=== PATIENT | female | born 1965 ===

== ENCOUNTER 2020-02-20 16:05 | Outpatient (REF) | payer BC, SELFPAY ==
[2020-02-20 18:02] LABS: Anion Gap 13 (12-20); Blood Urea Nitrogen 19 mg/dL (9-16); Calcium 8.6 mg/dL (8.4-10.2); Carbon Dioxide 30 mmol/L (22-29); Chloride 105 mmol/L (96-108); Estimated Glomerular Filt Rate 57; Glucose Random 85 mg/dL (60-115); Potassium 5.4 mmol/l (3.3-5.1); Sodium 143 mmol/L (135-145)
[2020-02-20 18:06] LABS: B Type Natriuretic Peptide 141 pg/mL (<100)
== END 2020-02-20 16:06 | disposition home or self-care (01) ==
LOC: HO.LAB 16:05
PROVIDERS: Visit Provider Internal Medicine Cardiovascular Disease
DX: I11.0 Hypertensive heart disease with heart failure (principal); I50.9 Heart failure, unspecified
CPT/HCPCS: 80048; 83880

== ENCOUNTER → 2020-03-19 15:17 | Outpatient (BNVA) | payer BC, SELFPAY | PROVIDERS: Visit Provider Internal Medicine Cardiovascular Disease | DX: I50.30 Unspecified diastolic (congestive) heart failure (principal); I51.7 Cardiomegaly; G47.00 Insomnia, unspecified; E66.01 Morbid (severe) obesity due to excess calories | CPT/HCPCS: 93005 ==

== ENCOUNTER 2020-04-03 15:28 | Outpatient (REF) | payer BC, SELFPAY ==
[2020-04-03 17:53] LABS: B Type Natriuretic Peptide 126 pg/mL (<100)
== END 2020-04-03 15:29 | disposition home or self-care (01) ==
LOC: HO.LAB 15:28
PROVIDERS: Visit Provider Internal Medicine Cardiovascular Disease
DX: I50.30 Unspecified diastolic (congestive) heart failure (principal); I51.7 Cardiomegaly; I10 Essential (primary) hypertension
CPT/HCPCS: 83880

== ENCOUNTER → 2020-07-19 15:29 | Outpatient (BNVA) | payer BC, SELFPAY | PROVIDERS: PCP Internal Medicine; Visit Provider Internal Medicine Cardiovascular Disease ==

== ENCOUNTER 2020-08-02 10:19 | Outpatient (REF) | payer BC, SELFPAY ==
[2020-08-02 11:44] LABS: MANUAL DIFF FLAG NO
[2020-08-02 11:51] LABS: Basophils Absolute Auto 0.1 X10*3/uL (0.0-0.2); Basophils Percent Auto 0.8 % (0-2); Eosinophils Absolute Auto 0.2 X10*3/uL (0.0-0.4); Eosinophils Percent Auto 3.1 % (0-4); Hematocrit 42.3 % (37-47); Hemoglobin 13.6 g/dl (12.0-16.0); Imm Gran Abs Auto 0.03 X10*3/uL (0.00-0.03); Imm Gran Pct Auto 0.5 % (0.0-0.4); Lymphocytes Absolute Auto 1.6 X10*3/uL (1.2-4.9); Lymphocytes Percent Auto 26.7 % (20-40); Mean Corpuscular HGB Conc 32.2 g/dl (31.0-35.0); Mean Corpuscular Hemoglobin 28.8 pg (27.0-33.0); Mean Corpuscular Volume 89.4 fL (80-98); Mean Platelet Volume 11.3 fL (9.4-12.3); Monocytes Absolute Auto 0.7 X10*3/uL (0.1-1.2); Monocytes Percent Auto 10.9 % (2-11); Neutrophils Absolute Auto 3.6 X10*3/uL (2.0-8.3); Platelet Count 263 X10*3/uL (160-400); Red Blood Count 4.73 X10*6/uL (4.20-5.50); Red Cell Distribution Width 13.2 % (11.0-16.0); White Blood Count 6.1 X10*3/uL (4.8-10.8)
[2020-08-02 12:18] LABS: B Type Natriuretic Peptide 150 pg/mL (<100)
[2020-08-02 12:24] LABS: Appearance Urine CLEAR; Color Urine YELLOW; Glucose Urine UA NEG (NEG); Leukocyte Esterase Urine NEG (NEG); Nitrite Urine NEG (NEG); PH 5.5 (5.0-8.0); Specific Gravity - Urine 1.025 (1.005-1.025); Urine Blood NEG (NEG); Urine Ketones NEG (NEG); Urine Protein NEG (NEG-TRACE)
[2020-08-02 12:25] LABS: Alanine Aminotransferase 47 U/L (0-31); Albumin Level 4.3 g/dL (3.5-5.0); Alkaline Phosphatase 102 U/L (39-117); Anion Gap 12 (12-20); Aspartate Amino Transferase 36 U/L (5-31); Bilirubin Total 0.4 mg/dL (0.0-1.0); Blood Urea Nitrogen 27 mg/dL (9-16); Calcium 9.3 mg/dL (8.4-10.2); Carbon Dioxide 31 mmol/L (22-29); Chloride 105 mmol/L (96-108); Cholesterol 258 mg/dL; Estimated Glomerular Filt Rate > 60; Glucose Fasting 108 mg/dL (60-99); HDL Cholesterol 69 mg/dL; LDL Cholesterol Calculated 171 mg/dl; Potassium 4.3 mmol/L (3.3-5.1); Sodium 144 mmol/L (135-145); Total Protein 7.5 g/dL (6.5-8.0); Triglycerides 91 mg/dL
[2020-08-02 12:30] LABS: TSH reflex Free T4 0.93 uIU/mL (0.32-4.0)
== END 2020-08-02 10:20 | disposition home or self-care (01) ==
LOC: HO.LAB 10:19
PROVIDERS: Absent Provider Internal Medicine Cardiovascular Disease; PCP Internal Medicine; Visit Provider Nurse Practitioner Family
DX: I50.30 Unspecified diastolic (congestive) heart failure (principal); I51.7 Cardiomegaly; G47.33 Obstructive sleep apnea (adult) (pediatric); I10 Essential (primary) hypertension; E78.5 Hyperlipidemia, unspecified; E78.00 Pure hypercholesterolemia, unspecified; E66.01 Morbid (severe) obesity due to excess calories; Z68.41 Body mass index [BMI] 40.0-44.9, adult; Z88.0 Allergy status to penicillin; Z98.890 Other specified postprocedural states; Z99.89 Dependence on other enabling machines and devices; Z79.82 Long term (current) use of aspirin; Z79.899 Other long term (current) drug therapy
CPT/HCPCS: 36415; 80053; 80061; 81003; 83880; 84443; 85025

== ENCOUNTER → 2020-08-15 07:53 | Outpatient (BNVA) | payer BC, SELFPAY | PROVIDERS: PCP Internal Medicine; Visit Provider Surgery ==

== ENCOUNTER → 2020-09-06 15:13 | Outpatient (BNVA) | payer BC, SELFPAY | PROVIDERS: PCP Internal Medicine; Referring Provider Internal Medicine; Visit Provider Internal Medicine Cardiovascular Disease ==

== ENCOUNTER 2020-09-10 08:04 | Outpatient (REF) | payer BC, SELFPAY ==
--- NOTE | ~2020-09-10 | FL_ITS ---
EXAMINATION: FL UPPER GI SERIES XR CHEST CLINICAL INFORMATION: Moderate/severe obesity to the excess categories. COMPARISON: None. TECHNIQUE: Routine upper GI air contrast study was performed. Chest 2 views. FINDINGS: Upper GI: Following oral administration of thick barium and effervescent granules, there is normal propagation bolus from the oral cavity through the pharynx and esophagus and into the stomach without any evidence of obstruction, narrowing or stricture. On placing patient supine and prone lying, the course, caliber and peristalsis of the stomach and the duodenal bulb are normal. Prominent gastric glands are seen within the body of the stomach but no suspicion for erosions or ulcerations. The rest of the stomach, the duodenal bulb and the sweep appear unremarkable. Moderate gastroesophageal reflux with small reducible hiatal hernia is noted. FL/FL upper GI series IMPRESSION: Moderate gastroesophageal reflux with small reducible hiatal hernia. The rest of the upper GI exam is unremarkable.
--- NOTE | ~2020-09-10 | US_ITS ---
EXAMINATION: US COMPLETE ABDOMEN WITH LIVER ELASTOGRAPHY CLINICAL INFORMATION: Obesity. COMPARISON: Previous abdominal ultrasound October [address] of the abdomen and pelvis December 2014. TECHNIQUE: Real-time imaging of the abdominal viscera. Noninvasive ultrasound liver fibrosis assessment is performed using Krysta ElastPQ point quantification shear wave elastography (pSWE) with a C5-2 MHz transducer. Multiple elastography samples are obtained. FINDINGS: PANCREAS: The visualized pancreatic head and body are normal in appearance. The remainder of the pancreas is obscured from visualization by the overlying bowel gas. ABDOMINAL AORTA: The proximal, middle, and distal aortic segments are normal in caliber. INFERIOR VENA CAVA: Visualized portions are normal. LIVER: Liver echotexture is increased. The liver is enlarged. The liver contour is normal. No focal lesion or intrahepatic biliary duct dilatation. The right lobe measures 21 cm in length. The left lobe measures 12 cm in length. Portal flow is normal/hepatopedal. Shear wave liver elastography median stiffness is 2.3 m/s (reference: Normal median stiffness is 1.3 m/s or less). IQR/median stiffness to assess sampling precision is 0.34 (reference: good quality data set is IQR/median stiffness of 0.15 or less). GALLBLADDER: Normal. The gallbladder is physiologically distended without evidence of stones, sludge, polyps, wall thickening or pericholecystic fluid. COMMON BILE DUCT: Normal in caliber measuring 0.3 cm in diameter. RIGHT KIDNEY: There is a 6.3 x 5.3 x 6.1 cm cyst in the midpole. No hydronephrosis. No renal calculi or mass. The kidney measures 10.8 cm in maximum dimension. LEFT KIDNEY: Normal. No hydronephrosis. No renal calculi or focal parenchymal lesions. The kidney measures 10.4 cm in maximum dimension. SPLEEN: Normal. The spleen measures 9.4 cm in maximum dimension. FREE FLUID: None. US/US abdomen comp w elastography IMPRESSION: 1. Impression: Enlarged echogenic liver probably representing fatty infiltration. 6 cm right renal cyst. Limited visualization of the tail the pancreas. 2. Liver elastography: Limited due to sampling error. Liver stiffness suggests evidence of compensated advanced chronic liver disease. REFERENCE: Society of Radiologists in Ultrasound Liver Stiffness Thresholds (2020): LIVER STIFFNESS THRESHOLDS: *Liver Stiffness equal or less than 1.3 m/s: High probability of being normal. *Liver Stiffness less than 1.7 m/s: In the absence of other known clinical signs, rules out compensated advanced chronic liver disease. *Liver Stiffness 1.7-2.1 m/s: Suggestive of compensated advanced chronic liver disease but need further test for confirmation. *Liver Stiffness over 2.1 m/s: Rules in compensated advanced chronic liver disease. *Liver Stiffness over 2.4 m/s: Suggestive of clinically significant portal hypertension. QUALITY OF DATA SET: *IQR/Median value equal or less than 0.15 implies a quality data set. *IQR/Median value over 0.15 implies a poor quality data set. SIGNIFICANT CHANGE FROM PRIOR EXAM: Significant change if liver stiffness measurement is 10% or greater from prior exam. OTHER CONSIDERATIONS: The stage of liver fibrosis may be overestimated in the setting of acute hepatitis, liver inflammation, elevated liver function tests, hepatic vascular congestion, obstructive cholestasis, non-fasting state, and infiltrative diseases such as amyloidosis and lymphoma. In some patients with NAFLD, the liver stiffness thresholds for compensated advanced chronic liver disease may be lower. In causes other than viral hepatitis and NAFLD, liver stiffness thresholds are not well established.
== END 2020-09-10 08:05 | disposition home or self-care (01) ==
LOC: HO.US 08:04
PROVIDERS: Visit Provider Surgery
DX: Z01.818 Encounter for other preprocedural examination (principal); E66.01 Morbid (severe) obesity due to excess calories; G47.30 Sleep apnea, unspecified; E78.00 Pure hypercholesterolemia, unspecified; K21.9 Gastro-esophageal reflux disease without esophagitis; I11.0 Hypertensive heart disease with heart failure; I50.30 Unspecified diastolic (congestive) heart failure; Z68.41 Body mass index [BMI] 40.0-44.9, adult
CPT/HCPCS: 71046; 74240; 76705; 76981

== ENCOUNTER → 2020-09-18 08:14 | Outpatient (BNVA) | payer BC, SELFPAY | PROVIDERS: PCP Internal Medicine; Visit Provider Dietitian, Registered | DX: E66.01 Morbid (severe) obesity due to excess calories (principal); Z68.41 Body mass index [BMI] 40.0-44.9, adult | CPT/HCPCS: 97802 ==

== ENCOUNTER → 2020-09-25 08:08 | Outpatient (BNVA) | payer BC, SELFPAY | PROVIDERS: PCP Internal Medicine; Visit Provider Surgery ==

== ENCOUNTER → 2020-10-16 15:05 | Outpatient (BNVA) | payer BC, SELFPAY | PROVIDERS: PCP Internal Medicine; Referring Provider Internal Medicine; Visit Provider Internal Medicine Cardiovascular Disease ==

== ENCOUNTER → 2020-12-11 08:05 | Outpatient (BNVA) | payer BC, SELFPAY | PROVIDERS: PCP Internal Medicine; Visit Provider Dietitian, Registered | DX: E66.01 Morbid (severe) obesity due to excess calories (principal); Z68.41 Body mass index [BMI] 40.0-44.9, adult | CPT/HCPCS: 97803 ==

== ENCOUNTER 2020-12-17 10:03 | Outpatient (REF) | payer BC, SELFPAY ==
[2020-12-18 12:01] LABS: H Pylori Breath Test NOT DETECTED (NOT DETECTED)
== END 2020-12-17 10:04 | disposition home or self-care (01) ==
LOC: HO.LNP 10:03
PROVIDERS: PCP Internal Medicine; Referring Provider Internal Medicine; Visit Provider Physician Assistant
DX: Z01.818 Encounter for other preprocedural examination (principal); E66.01 Morbid (severe) obesity due to excess calories; Z68.41 Body mass index [BMI] 40.0-44.9, adult
CPT/HCPCS: 83013

== ENCOUNTER → 2020-12-21 10:01 | Outpatient (REF) | payer BC, SELFPAY ==
--- NOTE | 2020-12-21 11:12 | ECG_ITS ---
Test Reason : MORBID OBESITY Blood Pressure : / mmHG Vent. Rate : 083 BPM Atrial Rate : 083 BPM P-R Int : 144 ms QRS Dur : 072 ms QT Int : 396 ms P-R-T Axes : 069 066 097 degrees QTc Int : 465 ms Normal sinus rhythm Possible Left atrial enlargement T-wave inversion in Lateral leads Abnormal ECG When compared with ECG of 29-SEP-2015 10:18, T wave inversion more evident in Lateral leads Referred By: Misael Balderas Electronically Signed By:CORBY HUNTER
[2020-12-21 11:33] LABS: MANUAL DIFF FLAG NO
[2020-12-21 11:38] LABS: Basophils Absolute Auto 0.1 X10*3/uL (0.0-0.2); Basophils Percent Auto 0.9 % (0-2); Eosinophils Absolute Auto 0.1 X10*3/uL (0.0-0.4); Eosinophils Percent Auto 2.3 % (0-4); Hematocrit 39.3 % (37-47); Hemoglobin 12.8 g/dl (12.0-16.0); Imm Gran Abs Auto 0.02 X10*3/uL (0.00-0.03); Imm Gran Pct Auto 0.4 % (0.0-0.4); Lymphocytes Absolute Auto 1.5 X10*3/uL (1.2-4.9); Lymphocytes Percent Auto 26.9 % (20-40); Mean Corpuscular HGB Conc 32.6 g/dl (31.0-35.0); Mean Corpuscular Hemoglobin 28.7 pg (27.0-33.0); Mean Corpuscular Volume 88.1 fL (80-98); Mean Platelet Volume 10.7 fL (9.4-12.3); Monocytes Absolute Auto 0.4 X10*3/uL (0.1-1.2); Monocytes Percent Auto 7.8 % (2-11); Neutrophils Absolute Auto 3.5 X10*3/uL (2.0-8.3); Neutrophils Percent Auto 61.7 % (45-73); Platelet Count 303 X10*3/uL (160-400); Red Blood Count 4.46 X10*6/uL (4.20-5.50); Red Cell Distribution Width 12.7 % (11.0-16.0); White Blood Count 5.6 X10*3/uL (4.8-10.8)
[2020-12-21 12:03] LABS: Estimated Average Glucose 111 mg/dL; Hemoglobin A1c % 5.5 %
[2020-12-21 12:10] LABS: Alanine Aminotransferase 28 U/L (0-31); Albumin Level 4.1 g/dL (3.5-5.0); Alkaline Phosphatase 93 U/L (39-117); Anion Gap 12 (12-20); Aspartate Amino Transferase 22 U/L (5-31); Bilirubin Total 0.4 mg/dL (0.0-1.0); Blood Urea Nitrogen 17 mg/dL (9-16); C Reactive Protein 2.44 mg/dL (< or = 0.50); Calcium 9.6 mg/dL (8.4-10.2); Carbon Dioxide 29 mmol/L (22-29); Chloride 106 mmol/L (96-108); Cholesterol 235 mg/dL; Estimated Glomerular Filt Rate > 60; Glucose Random 102 mg/dL (60-115); HDL Cholesterol 57 mg/dL; LDL Cholesterol Calculated 157 mg/dl; Potassium 4.4 mmol/L (3.3-5.1); Sodium 143 mmol/L (135-145); Total Protein 6.8 g/dL (6.5-8.0); Triglycerides 107 mg/dL
[2020-12-21 12:31] LABS: Ferritin 75 ng/mL (10-250); Vitamin D 25-OH Total 17.8 ng/mL (>30)
[2020-12-21 12:34] LABS: Folate 16.4 ng/mL (> or = 4.0); Vitamin B12 334 pg/mL (200-900)
[2020-12-25 16:06] LABS: Vitamin B1 11 nmol/L (8-30)
[2020-12-26 06:36] LABS: Zinc 76 mcg/dL (60-130)
[2020-12-26 19:07] LABS: Vitamin A 45 mcg/dL (38-98)
[2020-12-26 23:41] LABS: Insulin Level Total 18.5 uIU/mL
[2020-12-29 13:26] LABS: Calcium (PTHI) 9.3 mg/dL (8.6-10.4); PTHI 39 pg/mL (14-64)
== END ==
LOC: HO.CARD 10:01
PROVIDERS: Absent Provider Surgery; PCP Internal Medicine; Referring Provider Internal Medicine; Visit Provider Physician Assistant
DX: I11.0 Hypertensive heart disease with heart failure (principal); I50.30 Unspecified diastolic (congestive) heart failure; E66.01 Morbid (severe) obesity due to excess calories; Z68.41 Body mass index [BMI] 40.0-44.9, adult; E78.00 Pure hypercholesterolemia, unspecified; G47.30 Sleep apnea, unspecified
CPT/HCPCS: 36415; 80053; 80061; 82306; 82607; 82728; 82746; 83036; 83525; 83970; 84425; 84443; 84590; 84630; 85025; 86140; 93005

== ENCOUNTER → 2021-01-10 08:12 | Outpatient (BNVA) | payer BC, SELFPAY | PROVIDERS: PCP Internal Medicine; Referring Provider Internal Medicine; Visit Provider Dietitian, Registered | DX: E66.01 Morbid (severe) obesity due to excess calories (principal); Z68.41 Body mass index [BMI] 40.0-44.9, adult | CPT/HCPCS: 97803 ==

== ENCOUNTER → 2021-01-15 15:27 | Outpatient (BNVA) | payer BC, SELFPAY | PROVIDERS: PCP Internal Medicine; Referring Provider Internal Medicine; Visit Provider Internal Medicine Cardiovascular Disease ==

== ENCOUNTER → 2021-03-11 13:13 | Outpatient (BNVA) | payer BC, SELFPAY | PROVIDERS: PCP Internal Medicine; Referring Provider Internal Medicine; Visit Provider Physician Assistant ==

== ENCOUNTER 2021-04-02 15:28 | Outpatient (REF) | payer BC, SELFPAY ==
[2021-04-02 17:12] LABS: Anion Gap 14 (12-20); Blood Urea Nitrogen 21 mg/dL (9-16); Calcium 9.7 mg/dL (8.4-10.2); Carbon Dioxide 26 mmol/L (22-29); Chloride 103 mmol/L (96-108); Estimated Glomerular Filt Rate > 60; Glucose Random 88 mg/dL (60-115); Potassium 4.4 mmol/L (3.3-5.1); Sodium 139 mmol/L (135-145)
[2021-04-02 17:19] LABS: B Type Natriuretic Peptide 65 pg/mL (<100)
== END 2021-04-02 15:29 | disposition home or self-care (01) ==
LOC: HO.LAB 15:28
PROVIDERS: PCP Internal Medicine; Referring Provider Internal Medicine; Visit Provider Internal Medicine Cardiovascular Disease
DX: I50.30 Unspecified diastolic (congestive) heart failure (principal)
CPT/HCPCS: 36415; 80048; 83880

== ENCOUNTER → 2021-05-24 14:47 | Outpatient (BNVA) | payer BC, SELFPAY | PROVIDERS: PCP Internal Medicine; Referring Provider Internal Medicine; Visit Provider Physician Assistant ==

== ENCOUNTER → 2021-06-04 13:36 | Outpatient (REF) | payer BC, SELFPAY ==
--- NOTE | 2021-06-04 13:38 | CA_ITS ---
Transthoracic Echocardiogram Patient (Last, First, Middle): Pat Manuel, Gender: Female Date of : 1965 Age: 55 Procedure Date: 06/04/2021 Procedure Type: Transthoracic Echocardiogram Location: OP Height: 149.86 cm Weight: 101.61 kg BSA: 1.93 m2 Heart Rate: bpm BP: 124 / 78 mmHg Patient Transition Specialist: TRES Referring MD: Johny Poole MD Clerk Carrier: Johny Poole MD Symptoms: I50.30 - Unspecified diastolic (congestive) heart failure Study Quality: Fair ECG Rhythm: Sinus Conclusions: - 1. Normal LV systolic function with moderate LVH with grade 2 diastolic dysfunction 2. Moderately dilated left atrium 3. Ckup-np-nxiocmfu mitral regurgitation 4. Mildly elevated right ventricular systolic pressure 5. No pericardial effusion Findings Left Ventricle Normal left ventricular size and systolic function. There is moderately increased left ventricular wall thickness. The visually estimated ejection fraction is between 65-70%. Spectral Doppler is indicative of a pseudonormal filling pattern. E/E prime ratio is >15, consistent with elevated filling pressures. Evidence suggests grade II (moderate) diastolic dysfunction. Right Ventricle Normal right ventricular cavity size and systolic function. Atria The left atrium is moderately dilated. There is no evidence of interatrial shunt. The right atrium is normal in size. Aortic Valve Normal aortic valve structure and function. There is no aortic valve stenosis. There is no aortic valve regurgitation. Mitral Valve There is mild anterior and posterior mitral leaflet thickening. There is mild mitral annular calcification. There is mild to moderate mitral valve regurgitation. The mitral regurgitation jet is directed anteriorly. There is no mitral valve stenosis. Pulmonic Valve The pulmonic valve is likely normal. There is mild pulmonic valve regurgitation. Tricuspid Valve Normal tricuspid valve structure. There is mild tricuspid valve regurgitation. Mild pulmonary hypertension is present. Great Vessels All visible segments of the aorta are normal in size. The pulmonary artery was not well visualized. Venous The inferior vena cava is normal in size and collapses greater than 50% with inspiration. Pericardium/Pleural There is no evidence of pericardial effusion. Prior Study Comparison No significant change compared to prior study dated: 10/07/2019. Measurements 2D Linear Measurements IVSd: 1.56 0.6-0.9/0.6-1.0 cm LVIDd: 4.69 3.9-5.3/4.2-5.9 cm LVIDd Index: 2.43 2.4-3.2/2.2-3.1 cm/m2 LVIDs: 2.10 2.0-3.6 cm LVPWd: 1.45 0.7-1.1 cm Ao Root: 2.50 2.1-3.5 cm LA Diam: 4.40 2.7-3.8/3.0-4.0 cm LAIDs Index: 2.28 1.5-2.3 cm/m2 LV Mass: 367.51 67-162/88-224 g LV Mass Index: 190.42 43-95/49-115 g/m2 LVOT Diam: 2.00 3.0+(-)1.3 cm 2D Systolic Function EF 4C: 67.90 >55% EF 2C: 74.80 >55% EF BiP: 71.20 >55% Mitral Valve MV Pk E: 1.03 MV PK A: 0.75 MV Decel Time: 200.00 E/A: 1.40 E'Lateral: 5.98 E'Medial: 5.00 E/E' Med: 20.60 E/E' Lat: 17.20 PHT: 58.00 MVA PHT: 3.79 Decel Bandera: 5.15 Aortic Valve AoV Pk Roger: 1.69 AoV Mn Roger: 1.20 AoV VTI: 0.37 AoV Pk Grad: 11.00 Aov Mn Grad: 6.00 ARUN Cont.VTI: 1.99 LVOT LVOT Pk Roger: 1.06 LVOT Mn Roger: 0.76 LVOT VTI: 0.24 LVOT Pk Grad: 4.00 LVOT Mn Grad: 3.00 LVOT Diam: 2.00 LVOT Area: 3.14 Diastolic Function MV Pk E: 1.03 MV Pk A: 0.75 E/A: 1.40 E'Medial: 5.00 E/E' Med: 20.60 E' Laterial: 5.98 E/E' Lat: 17.20 Right Ventricle TAPSE (mm): 20.00 TVS' Roger: 12.00 Tricuspid Valve TR Pk Roger: 3.19 TR Pk Grad: 41.00 RA Press: 3.00 RVSP: 44.00 Great Vessels Aorta Ao Root-2D: 2.50 2.0-3.7 cm Ao Asc: 2.80 2.1-3.4 cm Ao Arch: 3.20 Updated in Other Vendor System with Status of Final Johny Poole MD electronically signed on 06/05/2021 10:04:57 AM with status of Final
== END ==
LOC: HO.CARD 13:36
PROVIDERS: Visit Provider Internal Medicine Cardiovascular Disease
DX: I50.30 Unspecified diastolic (congestive) heart failure (principal)
CPT/HCPCS: 93306

== ENCOUNTER → 2021-07-01 15:30 | Outpatient (BNVA) | payer BC, SELFPAY | PROVIDERS: PCP Internal Medicine; Referring Provider Internal Medicine; Visit Provider Internal Medicine Cardiovascular Disease | DX: Z01.810 Encounter for preprocedural cardiovascular examination (principal); I11.0 Hypertensive heart disease with heart failure; I50.30 Unspecified diastolic (congestive) heart failure; Z79.899 Other long term (current) drug therapy | CPT/HCPCS: 99212 ==

== ENCOUNTER → 2021-07-19 14:38 | Outpatient (BNVA) | payer BC, SELFPAY | PROVIDERS: PCP Internal Medicine; Referring Provider Internal Medicine; Visit Provider Physician Assistant | DX: Z13.89 Encounter for screening for other disorder (principal) ==

== ENCOUNTER → 2021-07-24 08:17 | Outpatient (BNVA) | payer BC, SELFPAY | PROVIDERS: PCP Internal Medicine; Visit Provider Surgery | DX: Z13.89 Encounter for screening for other disorder (principal) ==

== ENCOUNTER → 2021-08-16 08:40 | Outpatient (BNVA) | payer BC, SELFPAY | PROVIDERS: PCP Internal Medicine; Referring Provider Internal Medicine; Visit Provider Surgery | DX: Z13.89 Encounter for screening for other disorder (principal) ==

== ENCOUNTER → 2021-08-19 09:27 | Outpatient (BNVA) | payer BC, SELFPAY | PROVIDERS: PCP Internal Medicine; Visit Provider Surgery | DX: Z13.89 Encounter for screening for other disorder (principal) ==

== ENCOUNTER → 2021-08-23 15:46 | Outpatient (BNVA) | payer BC, SELFPAY | PROVIDERS: PCP Internal Medicine; Referring Provider Internal Medicine; Visit Provider Surgery | DX: Z13.89 Encounter for screening for other disorder (principal) ==

== ENCOUNTER → 2021-08-26 12:25 | Outpatient (BNVA) | payer BC, SELFPAY | PROVIDERS: PCP Internal Medicine; Visit Provider Physician Assistant | DX: Z13.89 Encounter for screening for other disorder (principal) ==

== ENCOUNTER 2021-08-27 07:18 | Inpatient (IN) | payer BC, SELFPAY ==
[2021-08-20 15:49] VITALS: BMI 42.4
[2021-08-22 06:48] LABS: MANUAL DIFF FLAG NO
[2021-08-22 06:54] LABS: Basophils Absolute Auto 0.1 X10*3/uL (0.0-0.2); Basophils Percent Auto 0.8 % (0-2); Eosinophils Absolute Auto 0.1 X10*3/uL (0.0-0.4); Eosinophils Percent Auto 1.1 % (0-4); Hematocrit 45.2 % (37.0-47.0); Hemoglobin 14.6 g/dl (12.0-16.0); Imm Gran Abs Auto 0.01 X10*3/uL (0.00-0.03); Imm Gran Pct Auto 0.2 % (0.0-0.4); Lymphocytes Absolute Auto 1.4 X10*3/uL (1.2-4.9); Lymphocytes Percent Auto 22.9 % (20-40); Mean Corpuscular HGB Conc 32.3 g/dl (31.0-35.0); Mean Corpuscular Hemoglobin 28.2 pg (27.0-33.0); Mean Corpuscular Volume 87.4 fL (80.0-98.0); Mean Platelet Volume 11.8 fL (9.4-12.3); Monocytes Absolute Auto 0.6 X10*3/uL (0.1-1.2); Monocytes Percent Auto 9.5 % (2-11); Neutrophils Absolute Auto 4.1 x10*3/uL (2.0-8.3); Neutrophils Percent Auto 65.5 % (45-73); Platelet Count 297 X10*3/uL (160-400); Red Blood Count 5.17 X10*6/uL (4.20-5.50); Red Cell Distribution Width 13.3 % (11.0-16.0); White Blood Count 6.2 X10*3/uL (4.8-10.8)
[2021-08-22 07:07] LABS: INTERNATIONAL NORM RATIO 1.2 (0.9-1.1); Prothrombin Time 13.3 SEC (9.9-13.0)
[2021-08-22 07:09] LABS: Partial Thromboplastin Time 37.1 SEC (24.1-38.0)
[2021-08-22 07:30] LABS: Alanine Aminotransferase 45 U/L (0-31); Albumin Level 4.3 g/dL (3.5-5.0); Alkaline Phosphatase 104 U/L (39-117); Anion Gap 13 (12-20); Aspartate Amino Transferase 35 U/L (5-31); Blood Urea Nitrogen 21 mg/dL (9-16); C Reactive Protein 3.06 mg/dL (< or = 0.50); Calcium 9.8 mg/dL (8.4-10.2); Carbon Dioxide 31 mmol/L (22-29); Chloride 101 mmol/L (96-108); Cholesterol 235 mg/dL; Creatinine Clr Calc Pharmacy 65.1; Estimated Glomerular Filt Rate 55; Glucose Random 101 mg/dL (60-115); HDL Cholesterol 60 mg/dL; LDL Cholesterol Calculated 160 mg/dl; Potassium 4.7 mmol/L (3.3-5.1); Sodium 140 mmol/L (135-145); Total Protein 7.6 g/dL (6.5-8.0); Triglycerides 77 mg/dL
[2021-08-22 07:55] LABS: TSH reflex Free T4 0.76 uIU/mL (0.32-4.0)
[2021-08-22 08:05] LABS: Estimated Average Glucose 117 mg/dL; Hemoglobin A1c % 5.7 %
[2021-08-23 11:05] LABS: Insulin 13 uU/mL (2-29)
--- NOTE | 2021-08-23 18:59 | MHC.SHP ---
Pre-Procedural Eval Section A Date of Service: 08/23/21 The patient is an INPATIENT: Yes The History & Physical has been completed within 30 days and I have reviewed it.: Yes Section B Chief Complaint: obesity, Relevant Family History (Specify if Yes): No Relevant Social History: None Present Medications: None Medical History: No relevant PMH History of Previous Operations: No relevant previous surgery Allergies: Allergies Allergy/AdvReac Type Severity Reaction Status Date / Time Penicillins [PENICILLINS] Allergy Intermediate RASH Verified 08/20/21 15:33 Review of Systems Sugical H&P ROS: Negative: Constitution, Cardiovascular, Respiratory, Neurological, Psychiatric, Hem-Onc, Allergic/Immunologic, Gastrointestinal, Genitourinary, Musculoskeletal, Integumentary, Endocrine and Eyes/Ears/Nose/Throat Exam Surgical H&P Exam: Normal: HEENT, Normal: Heart, Normal: Lungs, Normal: Extremities, Normal: Abdomen, Normal: Skin and Normal: Neurological Plan Diagnosis/Plan: Unchanged I have reviewed the history and physical and performed a pertinent physical examination on my patient. No changes have occurred unless specified.
--- NOTE | 2021-08-26 10:15 | P.CONAN_ITS ---
HPI - Anesthesia Eval Consult details Narrative: 55yo F for Gastrectomy Sleeve,EGD,poss diaphragmatic hernia,poss ventral hernia,poss open, Optimized per cardiology and neurology [facility] Active Problems Active Problems: All Active Problems (Updated 08/20/21 @ 15:51 by Aileen Lopez RN) Obstructive sleep apnea (Acute) Pre-op evaluation (Acute) Adjustment disorder, unspecified (Acute) Preoperative cardiovascular examination (Acute) Obesity (Acute) Middle cerebral artery aneurysm (Acute) Sleep apnea with use of continuous positive airway pressure (CPAP) (Acute) Morbid obesity with BMI of 40.0-44.9, adult (Acute) Pure hypercholesterolemia (Acute) Benign essential hypertension (Acute) (HFpEF) heart failure with preserved ejection fraction (Acute) Past Medical History Medical History (Updated 08/27/21 @ 14:32 by Misael Balderas MD) (HFpEF) heart failure with preserved ejection fraction Benign essential hypertension Cerebral arterial aneurysm COVID-19 vaccine series completed DJD (degenerative joint disease) GERD (gastroesophageal reflux disease) Grade II diastolic dysfunction Left atrial dilation Liver fibrosis Middle cerebral artery aneurysm Morbid obesity with BMI of 40.0-44.9, adult Pure hypercholesterolemia Sleep apnea with use of continuous positive airway pressure (CPAP) Steatosis, liver Family History Family History Father CVD (cardiovascular disease) Colon cancer Mother Gastric cancer Brother CVD (cardiovascular disease) Surgical History Surgical History (Updated 08/27/21 @ 14:22 by Nadeen Serrano PA-C) History of cardiac catheterization (~11/2019) History of surgery for cerebral aneurysm (~10/30/20) Hx of left knee surgery Social History Social History Housing: House Are you a primary client care representative to a significant other at home: No Do you presently have visiting nurse or other home services: No Alcohol intake: never Patient Tobacco Use Status: Never used Tobacco Second Hand Smoke Exposure: No service: No Current occupational status: employed 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 Meds Allergies Allergy/AdvReac Type Severity Reaction Status Date / Time Penicillins [PENICILLINS] Allergy Intermediate RASH Verified 08/20/21 15:33 Exam Exam Date and Time: August 26, 2021 1015 Height,Weight and Vital Signs: Height 5 ft Weight 98.543 kg Pertinent Lab Results Pertinent Lab Results: Laboratory Tests 08/22/21 08/22/21 08/22/21 06:42 06:46 06:46 WBC 6.2 RBC 5.17 Hgb 14.6 Hct 45.2 MCV 87.4 MCH 28.2 MCHC 32.3 RDW 13.3 Plt Count 297 MPV 11.8 Immature Gran % (Auto) 0.2 Neut % (Auto) 65.5 Lymph % (Auto) 22.9 Hardeman % (Auto) 9.5 Eos % (Auto) 1.1 Baso % (Auto) 0.8 Lymph # (Auto) 1.4 Hardeman # (Auto) 0.6 Eos # (Auto) 0.1 Baso # (Auto) 0.1 Abs Immat Gran (auto) 0.01 Absolute Neuts (auto) 4.1 Absolute Nucleated RBC 0.000 Nucleated RBC % (auto) 0.0 PT 13.3 H INR 1.2 H APTT 37.1 Sodium Potassium Chloride Carbon Dioxide Anion Gap BUN Creatinine Estim Creat Clear Calc Estimated GFR Random Glucose Estimat Average Glucose Hemoglobin A1c % Insulin Level Calcium Total Bilirubin AST ALT Alkaline Phosphatase C-Reactive Protein Total Protein Albumin Triglycerides Cholesterol LDL Cholesterol, Calc HDL Cholesterol TSH Blood Type O Positive Antibody Screen NEGATIVE 08/22/21 08/22/21 06:46 06:46 WBC RBC Hgb Hct MCV MCH MCHC RDW Plt Count MPV Immature Gran % (Auto) Neut % (Auto) Lymph % (Auto) Hardeman % (Auto) Eos % (Auto) Baso % (Auto) Lymph # (Auto) Hardeman # (Auto) Eos # (Auto) Baso # (Auto) Abs Immat Gran (auto) Absolute Neuts (auto) Absolute Nucleated RBC Nucleated RBC % (auto) PT INR APTT Sodium 140 Potassium 4.7 Chloride 101 Carbon Dioxide 31 H Anion Gap 13 BUN 21 H Creatinine 1.04 Estim Creat Clear Calc 65.1 Estimated GFR 55 Random Glucose 101 Estimat Average Glucose 117 Hemoglobin A1c % 5.7 Insulin Level 13 Calcium 9.8 Total Bilirubin 1.0 AST 35 H D ALT 45 H Alkaline Phosphatase 104 C-Reactive Protein 3.06 H Total Protein 7.6 Albumin 4.3 Triglycerides 77 Cholesterol 235 LDL Cholesterol, Calc 160 HDL Cholesterol 60 TSH 0.76 Blood Type Antibody Screen Narrative Narrative: EKG 12/2020 Vent. Rate : 083 BPM ? ? Atrial Rate : 083 BPM ?? P-R Int : 144 ms? QRS Dur : 072 ms ? ? QT Int : 396 ms ? ? ? P-R-T Axes : 069 066 097 degrees ?? QTc Int : 465 ms ? Normal sinus rhythm Possible Left atrial enlargement T-wave inversion in Lateral leads Abnormal ECG When compared with ECG of 29-SEP-2015 10:18, T wave inversion more evident in Lateral leads ECHO 05/2021 Conclusions: - 1.? Normal LV systolic function with moderate LVH with grade 2 diastolic dysfunction? 2. Moderately dilated left atrium? 3.? Bldd-hy-rplbelay mitral regurgitation? 4. Mildly elevated right ventricular systolic pressure ? 5.? No? pericardial effusion? Assessment and Plan Assessment Anesthesia Assessment: Chart Reviewed
[2021-08-26 12:36] LABS: COVID-19 Test Negative (Negative)
[2021-08-27] VITALS (14 sets, daily range): BP systolic 106–154; BP diastolic 56–89; PULSE 64–97; RESP 16–24; TEMP 36.2–37.2; O2SAT 93–100
[2021-08-27] MEDS: Lactated Ringers 1,000 ML 999 ML IV ×2 (10:39)
--- NOTE | 2021-08-27 10:59 | PHA.MEDREC ---
Pharmacy Consult ? Medication Reconciliation Pharmacy has reviewed the medication reconciliation.
--- NOTE | 2021-08-27 11:52 | HO.ANESPROP2 ---
[facility] Active Problems Active Problems: All Active Problems (Updated 08/20/21 @ 15:51 by Aileen Lopez RN) Obstructive sleep apnea (Acute) Pre-op evaluation (Acute) Adjustment disorder, unspecified (Acute) Preoperative cardiovascular examination (Acute) Obesity (Acute) Middle cerebral artery aneurysm (Acute) Sleep apnea with use of continuous positive airway pressure (CPAP) (Acute) Morbid obesity with BMI of 40.0-44.9, adult (Acute) Pure hypercholesterolemia (Acute) Benign essential hypertension (Acute) (HFpEF) heart failure with preserved ejection fraction (Acute) Past Medical History Medical History (Updated 08/20/21 @ 15:51 by Aileen Lopez RN) (HFpEF) heart failure with preserved ejection fraction Benign essential hypertension Cerebral arterial aneurysm COVID-19 vaccine series completed Middle cerebral artery aneurysm Morbid obesity with BMI of 40.0-44.9, adult Pure hypercholesterolemia Sleep apnea with use of continuous positive airway pressure (CPAP) Family History Family History Father CVD (cardiovascular disease) Colon cancer Mother Gastric cancer Brother CVD (cardiovascular disease) Family history of problems with anesthesia: No Surgical History Surgical History History of cardiac catheterization (~11/2019) History of surgery for cerebral aneurysm (~10/30/20) Hx of left knee surgery History of Problems with Anesthesia: No Social History Social History Housing: House Are you a primary field care manager to a significant other at home: No Do you presently have visiting nurse or other home services: No Alcohol intake: never Patient Tobacco Use Status: Never used Tobacco Second Hand Smoke Exposure: No Use of substances other than those prescribed or required for medical reasons: No Have you been hit, kicked, punched, or otherwise hurt by someone within the past year? 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 Meds Allergies Allergy/AdvReac Type Severity Reaction Status Date / Time Penicillins [PENICILLINS] Allergy Intermediate RASH Verified 08/20/21 15:33 Active Medications: Current Medications Lactated Ringer's (Lr) 500 mls @ 20 mls/hr IVCONT .Q24H ANTWON Exam Exam Date and Time: August 27, 2021 1152 Height,Weight and Vital Signs: Height 5 ft Weight 98.543 kg Last Vital Signs Temp 99 F 08/27/21 10:16 Pulse 66 08/27/21 10:16 Resp 16 08/27/21 10:16 BP 106/56 L 08/27/21 10:16 Pulse Ox 98 08/27/21 10:16 Pertinent Lab Results Pertinent Lab Results: Laboratory Tests 08/22/21 08/22/21 08/22/21 06:42 06:46 06:46 WBC 6.2 RBC 5.17 Hgb 14.6 Hct 45.2 MCV 87.4 MCH 28.2 MCHC 32.3 RDW 13.3 Plt Count 297 MPV 11.8 Immature Gran % (Auto) 0.2 Neut % (Auto) 65.5 Lymph % (Auto) 22.9 Wheeler % (Auto) 9.5 Eos % (Auto) 1.1 Baso % (Auto) 0.8 Lymph # (Auto) 1.4 Wheeler # (Auto) 0.6 Eos # (Auto) 0.1 Baso # (Auto) 0.1 Abs Immat Gran (auto) 0.01 Absolute Neuts (auto) 4.1 Absolute Nucleated RBC 0.000 Nucleated RBC % (auto) 0.0 PT 13.3 H INR 1.2 H APTT 37.1 Sodium Potassium Chloride Carbon Dioxide Anion Gap BUN Creatinine Estim Creat Clear Calc Estimated GFR Random Glucose Estimat Average Glucose Hemoglobin A1c % Insulin Level Calcium Total Bilirubin AST ALT Alkaline Phosphatase C-Reactive Protein Total Protein Albumin Triglycerides Cholesterol LDL Cholesterol, Calc HDL Cholesterol TSH COVID-19 (VAN) COVID-19 Clin Com Blood Type O Positive Antibody Screen NEGATIVE 08/22/21 08/22/21 08/26/21 06:46 06:46 12:05 WBC RBC Hgb Hct MCV MCH MCHC RDW Plt Count MPV Immature Gran % (Auto) Neut % (Auto) Lymph % (Auto) Wheeler % (Auto) Eos % (Auto) Baso % (Auto) Lymph # (Auto) Wheeler # (Auto) Eos # (Auto) Baso # (Auto) Abs Immat Gran (auto) Absolute Neuts (auto) Absolute Nucleated RBC Nucleated RBC % (auto) PT INR APTT Sodium 140 Potassium 4.7 Chloride 101 Carbon Dioxide 31 H Anion Gap 13 BUN 21 H Creatinine 1.04 Estim Creat Clear Calc 65.1 Estimated GFR 55 Random Glucose 101 Estimat Average Glucose 117 Hemoglobin A1c % 5.7 Insulin Level 13 Calcium 9.8 Total Bilirubin 1.0 AST 35 H D ALT 45 H Alkaline Phosphatase 104 C-Reactive Protein 3.06 H Total Protein 7.6 Albumin 4.3 Triglycerides 77 Cholesterol 235 LDL Cholesterol, Calc 160 HDL Cholesterol 60 TSH 0.76 COVID-19 (VAN) Negative COVID-19 Clin Com See Note Blood Type Antibody Screen Airway Mallampati Class: II TM Dist: >3cm Neck ROM: Full Assessment and Plan Assessment Anesthesia Assessment: Anesthesia Plan Discussed and Chart Reviewed Final Anesthetic Review Family History of Problems with Anesthesia: No History of Problems with Anesthesia: No NPO: Yes ASA Class: III Final Preanesthetic Review: No Changes in Pt Med Stat, Meds/Allgs Chart Reviewed, Consent Obtained/Reviewed and Anes Risks/Benef Reviewed Patient Risk: Intermediate Procedure Risk: Intermediate Anesthetic Plan Anesthetic Plan: GA Disposition: Standard PACU
--- NOTE | 2021-08-27 12:00 | PC.NURSE ---
spoke to md fischer about patients bolus for 1000ml due to the cardiology note. okay to bolus. kept kvo when i first scanned.
--- NOTE | 2021-08-27 14:24 | P.BOP_ITS ---
Brief Operative Note Date of Service: 08/27/21 Pre-op diagnosis: Morbid obesity with comorbidities (see below) Post-op diagnosis: same Procedure: INITIAL PATIENT BMI ON PRESENTATION AT OUR OFFICE: 44 kg/m2 LAST BMI BEFORE SURGERY: 41.9 kg/m2 COMORBIDITIES: sleep apnea on CPAP, hyperlipidemia.hypertension, CHF, DJD, GERD, liver steatosis, LVH, grade II diastolic dysfunction, left atrium dilation ?The patient presented to the Weight Management Program with significant obesity that was negatively impacting the patient's comorbidities as listed above.? The program is a phased program with a special focus on preoperative medical weight management to promote substantial weight loss and prepare the patients for the second phase of the program: bariatric surgery. The patient participated in an intensive weekly lifestyle ?intervention and exercise program during which the patient ?has lost between the initial office visit and the last preoperative visit 7lbs, or 3.16% of initial actual body weight. It was deemed appropriate for the patient to now have bariatric surgery. In light of the current Covid-19 pandemic and the well documented strong association of obesity and increased risk of worse outcomes if infected with Covid-19 (REFERENCES: https://pubmed.ncbi.nlm.nih.gov/12913881/ ,? https://pubmed.ncbi.nlm.nih.gov/59956375/ ), any delay in undergoing bariatric surgery may lead to the patient's worsening health condition and increased?risk of more severe Covid-19 disease if infected. In addition a recent?study from [facility] published in [facility] on 04/15/2021 ([email or web address]/C :[email or web address]) found that, among patients with obesity, substantial weight loss achieved with surgery was associated with improved outcomes of COVID-19 infection. The findings suggest that obesity can be a modifiable risk factor for the severity of COVID-19 infection. In addition, the patient met the BMI-criteria for bariatric surgery based on the BMI on initial presentation. The patient should not be penalized for achieving such weight loss because ?it is not sustainable long-term without surgical intervention and it was achieved in preparation for bariatric surgery ?under my direction and based on my published research ([email or web address]).pdf and? https://www.soard.org/article/[email or web address](24)69755-X/pdf ) ?that a 10% preoperative weight loss improves long-term weight loss after surgery and reduces perioperative complications.? Insurance carriers such as [facility] have endorsed my recommendations ?and have included in their policies criteria to include a 10% preoperative weight loss requirement. PROCEDURE: Esophago-gastroscopy, laparoscopic sleeve gastrectomy and laparoscopic gastropexy INDICATIONS: This is a 55 year-old female who was electively scheduled for laparoscopic, possibly open sleeve gastrectomy. The risks and complications of the procedure were discussed with the patient in advance, particularly the possibility of ; pulmonary embolism; staple line leak; bleeding; GERD; cardiac, pulmonary, or renal complications; as well as long-term problems such as insufficient weight loss, vitamin deficiency, strictures, or ulcers. The patient understood all the risks, and was in agreement to proceed with surgery. DESCRIPTION OF PROCEDURE: After informed consent was obtained from the patient, the patient was given preoperative antibiotics, and was transferred to the operating room. After successful induction of general anesthesia, pneumatic compression devices were placed on both lower extremities. An upper endoscopy was performed next. The oropharynx and esophagus appeared to be within normal limits. There was no diaphragmatic hernia present consistent with the findings of the preoperative upper GI. The stomach was entered. Then after all fluid and air were suctioned and the stomach was fully decompressed, the scope was withdrawn and secured in the mid esophagus. The patient was then prepped and draped in the usual sterile manner, and abdominal access was established at the right upper quadrant with the Doroteo technique. A 12 mm blunt port was inserted, and the abdomen was insufflated with CO2 to a pressure of 15 mmHg. Under direct visualization, additional ports were placed, specifically two 5 mm Versi-step ports to the left upper quadrant, and a 5 mm Versi-Step port to the right upper quadrant. 1% lidocaine plain was used to infiltrate all port sites as well as all fascia defects. Following that, the patient was placed in a steep reverse Trendelenburg position. An additional 5 mm port was placed to the right flank for the Mediflex retractor that was used to retract the left lobe of the liver. The gastro-esophageal fat pad was opened with the ultrasonic device (Thunderbeat, Olympus) and the anterior esophagus and hiatus were exposed. The angle of His was opened with the ultrasonic device the fundus of the stomach from any diaphragmatic and splenic attachments. I then opened the gastrocolic ligament between the transverse colon and the greater curvature of the stomach with the ultrasonic device to enter the lesser sac and facilitate the ligation of the short gastric vessels. I started at a mid-point along the greater curvature and using the Thunderbeat, all short gastric vessels were divided all the way to the angle of His until the left monse was completely dissected at its entirety. I then divided the gastro-colic ligament distally to a distance of about 3-4 cm proximal to the pylorus. The stomach was then divided transversely with one Endo ASTER-45 purple, two ASTER- 45 orange loads and three ASTER-60 articulating orange loads using the AEON stapler and loads. Every effort was made that the gastric sleeve had a tubular shape and an even caliber throughout. Once the sleeve resection was completed, the staple line of the gastric sleeve was reinforced with Hemoclips. The resected stomach was retrieved without difficulty from the Doroteo port. A gastropexy was then performed in order to prevent postoperative GERD and partial gastric volvulus. Several interrupted 2.0 Surgidac sutures were placed between the sleeve's staple line and the previously divided greater omentum and gastro-colic ligament using the Endo-Stitch device. ?An upper endoscopy was performed. There was no narrowing at the GE junction. The scope was easily advanced all the way to the pylorus which was clearly visualized. There was no narrowing anywhere and the sleeve's caliber was even throughout. The sleeve's staple line was inspected and there was no evidence of ischemia, bleeding or dehiscence. At that point the gastroscope was withdrawn from the patient?s mouth while we were decompressing the bowel and the stomach from any remaining air. I looked into the lesser sac to see how the sleeve was situating and it was situating well. There was no bleeding from the staple line, spleen, or short gastric vessels. The Mediflex retractor was removed, and the undersurface of the liver was inspected and there was no bleeding. The patient was placed in supine position. I closed the fascial defect of the 12 mm port site with a figure of eight #1 Polysorb suture. Then 100 cc 0.25 % Marcaine plain with 10 mg of Dexamethasone were used to infiltrate the fascial closure as well as all skin incisions. 5 ml of Zynrelef was also applied at the Doroteo wound. At this point, the abdomen was deflated, all ports were removed under direct vision, and no bleeding was noted from any of the port sites. The skin incisions were irrigated with saline and were closed with 4-0 absorbable monofilament sutures. Steri-Strips and OpSites were used to cover all incisions. The patient was extubated and was transferred in stable condition to the recovery room for further care. I was present and performed all carroll parts of the procedure. Ms. Serrano was the first cook. There were no residents to assist with this case. Froilan Balderas MD, PhD, FACS Surgeon: Misael Balderas MD Anesthesia: GETA, local and other (TAP block and 5ml Zynrelef) Was an Cable Lacer used for this Procedure?: Yes Cable Lacer: Nadeen Serrano Estimated blood loss (mL): 10 IV fluids (mL): 3,000 Urine output (mL): 0 (No Zavala to record) Pathology: other (Stomach) Condition: stable Disposition: PACU
--- NOTE | 2021-08-27 14:25 | PM.DS ---
DS: Providers Provider Date of Service: 08/28/21 Date of admission: 08/27/21 07:18 Primary care physician: Mert Meléndez MD DS: Summary Time Spent with Patient Time attestation: Total time spent providing and/or coordinating discharge services: Discharge coordination time: Less than 30 minutes Quality: Safe Use of Opioids Does Pt have an Active Cancer Diagnosis on the Problem List?: No Quality: Stroke Does the patient have a stroke diagnosis?: No Physical Exam Vital Signs: Vital Signs: Last Vital Signs Temp 99 F 08/27/21 10:16 Pulse 66 08/27/21 10:16 Resp 16 08/27/21 10:16 BP 106/56 L 08/27/21 10:16 Pulse Ox 98 08/27/21 10:16 BMI result Body Mass Index 42.4 DS: Data Data Completed and Pending Pending studies at discharge: Pending at discharge 08/27/21 13:36 Surgical [PTH] Routine
--- NOTE | 2021-08-27 14:28 | PM.PNGS ---
Subjective Subjective Date of Service: 08/28/21 Interval history: Patient has mild incisional pain, but was able to ambulate and use the incentive spirometer. She is tolerating phase 1 bariatric diet Physical Exam Vital Signs: Vital Signs: Last Vital Signs Temp 99 F 08/27/21 10:16 Pulse 66 08/27/21 10:16 Resp 16 08/27/21 10:16 BP 106/56 L 08/27/21 10:16 Pulse Ox 98 08/27/21 10:16 BMI result Body Mass Index 42.4 GI: Inspection: Yes normal to inspection, Yes incision (clean, dry and intact) and Yes obesity Extrem: Right lower extremity: normal to inspection (no calf tenderness) Left lower extremity: normal to inspection (no calf tenderness) Objective Data Active Medications Fentanyl (Fentanyl Citrate/Pf 100 Mcg/2 Ml Vial) 50 mcg IVPUSH Q5M PRN; Protocol PRN Reason: Pain, Severe (Pain Scale 7-10) Lactated Ringer's (Lr) 500 mls @ 20 mls/hr IVCONT .Q24H ANTWON Ondansetron HCl (Ondansetron Hcl 4 Mg/2 Ml Vial) 4 mg IVPUSH ONCE PRN PRN Reason: Nausea and Vomiting Labs CBC & Chem 7: 08/28/21 06:00 08/28/21 06:00 Procedures Date of Service Date of Service: 08/28/21 Progress Note: A&P Assessment and plan (1) S/P laparoscopic sleeve gastrectomy: Status: Acute Assessment and Plan: s/p laparoscopic sleeve gastrectomy, lysis of adhesions and gastropexy Doing well Check am labs. If OK, will discharge home? (2) Morbid obesity with BMI of 40.0-44.9, adult: Status: Acute (3) Pure hypercholesterolemia: Status: Acute (4) Benign essential hypertension: Status: Acute (5) (HFpEF) heart failure with preserved ejection fraction: Status: Acute (6) Sleep apnea with use of continuous positive airway pressure (CPAP): Status: Acute (7) DJD (degenerative joint disease): Status: Acute (8) GERD (gastroesophageal reflux disease): Status: Acute (9) Steatosis, liver: Status: Acute (10) Left atrial dilation: Status: Acute (11) Liver fibrosis: Status: Acute (12) Grade II diastolic dysfunction: Status: Acute Time Spent With Patient Time: Total time spent is greater than 50% in coordination of care (as documented) at patient's floor/unit and/or counseling patient: Quality Stroke Does the patient have a stroke diagnosis?: No VTE Prior VTE?: No VTE Risk Level:: Surgical - moderate VTE Device Contraindication: N/A - Device Ordered VTE Drug Contraindication: Treatment Not Indicated
[2021-08-27] MEDS: Famotidine/PF 20 MG/2 ML VIAL IVPUSH ×2 (14:39→20:46)
[2021-08-27] MEDS: Metoclopramide HCl 10 MG/2 ML VIAL IVPUSH ×2 (15:19→22:08)
[2021-08-27] MEDS: Lactated Ringers 1,000 ML 100 ML IVCONT ×2 (15:21→22:08)
[2021-08-27 15:23] LABS: Hematocrit 45.7 % (37.0-47.0); Hemoglobin 14.7 g/dl (12.0-16.0)
[2021-08-27 15:39] LABS: Anion Gap 16 (12-20); Blood Urea Nitrogen 13 mg/dL (9-16); Calcium 9.4 mg/dL (8.4-10.2); Carbon Dioxide 22 mmol/L (22-29); Chloride 106 mmol/L (96-108); Creatinine Clr Calc Pharmacy 69.8; Estimated Glomerular Filt Rate 60; Glucose Random 108 mg/dL (60-115); Potassium 4.7 mmol/L (3.3-5.1); Sodium 139 mmol/L (135-145)
[2021-08-27] MEDS: ondansetron HCL 4 MG/2 ML VIAL IVPUSH (19:13)
[2021-08-27] MEDS: 0.9 % Sodium Chloride Flush 3 ML SYRINGE IVFLUSH (19:13)
[2021-08-28] MEDS: ondansetron HCL 4 MG/2 ML VIAL IVPUSH (03:12)
[2021-08-28 04:00] VITALS: BP 166/80; PULSE 92; RESP 16; TEMP 37.2; O2SAT 94
[2021-08-28 04:23] VITALS: BP 166/77
[2021-08-28] MEDS: Metoprolol Succinate ER 50 MG TAB.ER.24H PO (04:28)
--- NOTE | 2021-08-28 04:36 | PC.NURSE ---
PT BP elevated 166/77 at 0420, ALLISON Serrano notified, PT other VS stable, HR 92, Nadeen gave order to give 0900 Metoprolol early, given at 0430.
[2021-08-28 06:23] LABS: MANUAL DIFF FLAG NO
[2021-08-28 06:28] LABS: Basophils Percent Auto 0.1 % (0-2); Hematocrit 43.1 % (37.0-47.0); Hemoglobin 14.6 g/dl (12.0-16.0); Imm Gran Abs Auto 0.08 X10*3/uL (0.00-0.03); Lymphocytes Absolute Auto 0.8 X10*3/uL (1.2-4.9); Mean Corpuscular HGB Conc 33.9 g/dl (31.0-35.0); Mean Corpuscular Hemoglobin 28.8 pg (27.0-33.0); Monocytes Absolute Auto 0.4 X10*3/uL (0.1-1.2); Monocytes Percent Auto 4.5 % (2-11); Neutrophils Absolute Auto 7.1 x10*3/uL (2.0-8.3); Neutrophils Percent Auto 84.4 % (45-73); Platelet Count 223 X10*3/uL (160-400); Red Blood Count 5.07 X10*6/uL (4.20-5.50); White Blood Count 8.4 X10*3/uL (4.8-10.8)
[2021-08-28 06:51] LABS: Anion Gap 16 (12-20); Blood Urea Nitrogen 9 mg/dL (9-16); Calcium 9.4 mg/dL (8.4-10.2); Carbon Dioxide 22 mmol/L (22-29); Chloride 102 mmol/L (96-108); Creatinine Clr Calc Pharmacy 89.1; Estimated Glomerular Filt Rate > 60; Glucose Random 114 mg/dL (60-115); Potassium 4.8 mmol/L (3.3-5.1); Sodium 135 mmol/L (135-145)
[2021-08-28] MEDS: Metoclopramide HCl 10 MG/2 ML VIAL IVPUSH (06:55)
[2021-08-28] MEDS: 0.9 % Sodium Chloride Flush 3 ML SYRINGE IVFLUSH (06:55)
[2021-08-28] MEDS: Famotidine/PF 20 MG/2 ML VIAL IVPUSH (07:29)
[2021-08-28] MEDS: amLODIPine Besylate 5 MG TABLET PO (07:29)
[2021-08-28 08:00] VITALS: BP 143/69; PULSE 90; RESP 17; TEMP 37.1; O2SAT 97
[2021-08-28] MEDS: Lactated Ringers 1,000 ML 100 ML IVCONT (09:07)
--- NOTE | 2021-08-28 09:31 | MHC.CM.PN ---
PATIENT LIVES WITH HER SPOUSE/HCP SHE STATES THAT A COPY OF HCP IS ON FILE AT [facility]. SHE HAS A CANE AND WALKER IN THE HOME J&J VACCINATED X 1 BUT UNABLE TO RECALL THE DATE. POSSIBLE DC TO HOME TODAY - SELF [facility]ARE SPOUSE WILL TRANSPORT.
--- NOTE | 2021-08-28 11:12 | HO.POSTANES ---
Post Anesthesia Evaluation Post Anesthesia Evaluation Vital Signs: Vital Signs Temp Pulse Resp BP Pulse Ox 08/28/21 08:00 98.7 F 90 17 143/69 H 97 08/28/21 04:23 166/77 H 08/28/21 04:00 98.9 F 92 16 166/80 H 94 08/27/21 23:52 97.2 F 97 16 145/71 H 93 Anesthesia: General Endotracheal-GETA Mental Status: Awake Pain Control: Satisfactory Nausea/Vomiting: None Hydration: Adequate Anesthesia-Related Issues: No Anes. Related Issues
--- NOTE | 2021-08-28 12:00 | MHC.CM.PN ---
home - self care RN aware of plan
== END 2021-08-28 12:27 | disposition home or self-care (01) | DRG 403 ==
LOC: HO.SSSA 14:25 → HO.S3 15:17
PROVIDERS: Physician Assistant; Physician Assistant Surgical; Admitting Provider Surgery; PCP Internal Medicine; Visit Provider Surgery
PROC: 0DB64Z3 Excision of Stomach, Percutaneous Endoscopic Approach, Vertical (ICD-10-PCS; CPT 43845; principal; 2021-08-27 12:20)
DX: E66.01 Morbid (severe) obesity due to excess calories (principal); I11.0 Hypertensive heart disease with heart failure; I50.32 Chronic diastolic (congestive) heart failure; K74.00 Hepatic fibrosis, unspecified; G47.33 Obstructive sleep apnea (adult) (pediatric); E78.5 Hyperlipidemia, unspecified; M19.90 Unspecified osteoarthritis, unspecified site; Z68.41 Body mass index [BMI] 40.0-44.9, adult; Z20.822 Contact with and (suspected) exposure to COVID-19; Z88.0 Allergy status to penicillin; Z79.899 Other long term (current) drug therapy
CPT/HCPCS: 36415; 80048; 80053; 80061; 83036; 83525; 84443; 85014; 85018; 85025; 85610; 85730; 86140; 86850; 86900; 86901; 87635; 88307; 88342; 99024; A4649; C9399; J0131; J1100; J1170; J1956; J2250; J2405; J2765; J3010

== ENCOUNTER → 2021-09-03 11:51 | Outpatient (BNVA) | payer BC, SELFPAY | PROVIDERS: PCP Internal Medicine; Visit Provider Physician Assistant Surgical | DX: Z13.89 Encounter for screening for other disorder (principal) ==

== ENCOUNTER → 2021-09-05 12:58 | Outpatient (BNVA) | payer BC, SELFPAY | PROVIDERS: PCP Internal Medicine; Referring Provider Internal Medicine; Visit Provider Physician Assistant Surgical | DX: Z98.84 Bariatric surgery status (principal) ==

== ENCOUNTER → 2021-09-10 12:05 | Outpatient (BNVA) | payer BC, SELFPAY | PROVIDERS: PCP Internal Medicine; Visit Provider Physician Assistant Surgical | DX: Z13.89 Encounter for screening for other disorder (principal) ==

== ENCOUNTER → 2021-09-17 10:21 | Outpatient (BNVA) | payer BC, SELFPAY | PROVIDERS: PCP Internal Medicine; Referring Provider Internal Medicine; Visit Provider Physician Assistant | DX: Z13.89 Encounter for screening for other disorder (principal) ==

== ENCOUNTER → 2021-09-24 15:45 | Outpatient (BNVA) | payer BC, SELFPAY | PROVIDERS: PCP Internal Medicine; Referring Provider Internal Medicine; Visit Provider Physician Assistant | DX: Z13.89 Encounter for screening for other disorder (principal) ==

== ENCOUNTER → 2021-12-20 09:36 | Outpatient (BNVA) | payer OTHER, SELFPAY | PROVIDERS: PCP Internal Medicine; Visit Provider Physician Assistant | DX: S50.312A Abrasion of left elbow, initial encounter (principal); W01.0XXA Fall on same level from slipping, tripping and stumbling without subsequent striking against object, initial encounter; L03.114 Cellulitis of left upper limb | CPT/HCPCS: 90715; 99203 ==

== ENCOUNTER 2021-12-20 13:18 | Outpatient (REF) | payer OTHER, SELFPAY | END 2021-12-20 13:19 | disposition home or self-care (01) | LOC: HO.LNP 13:18 | PROVIDERS: Visit Provider Physician Assistant Medical | DX: M00.9 Pyogenic arthritis, unspecified (principal) | CPT/HCPCS: 87071; 87077; 87186; 87205 ==

== ENCOUNTER → 2021-12-24 08:57 | Outpatient (BNVA) | payer BC, SELFPAY | PROVIDERS: PCP Internal Medicine; Visit Provider Internal Medicine | DX: S50.312D Abrasion of left elbow, subsequent encounter (principal); W01.0XXD Fall on same level from slipping, tripping and stumbling without subsequent striking against object, subsequent encounter; L03.114 Cellulitis of left upper limb | CPT/HCPCS: 99213 ==

== ENCOUNTER → 2021-12-30 07:54 | Outpatient (BNVA) | payer BC, SELFPAY | PROVIDERS: PCP Internal Medicine; Visit Provider Physician Assistant Medical | DX: S50.312D Abrasion of left elbow, subsequent encounter (principal); W01.0XXD Fall on same level from slipping, tripping and stumbling without subsequent striking against object, subsequent encounter; L03.114 Cellulitis of left upper limb | CPT/HCPCS: 99213 ==

== ENCOUNTER 2022-06-07 07:50 | Outpatient (REF) | payer BC, SELFPAY ==
[2022-06-07 08:03] LABS: MANUAL DIFF FLAG NO
[2022-06-07 08:41] LABS: Basophils Absolute Auto 0.1 X10*3/uL (0.0-0.2); Basophils Percent Auto 1.8 % (0-2); Eosinophils Absolute Auto 0.1 X10*3/uL (0.0-0.4); Eosinophils Percent Auto 1.5 % (0-4); Hematocrit 42.6 % (37.0-47.0); Hemoglobin 13.9 g/dl (12.0-16.0); Imm Gran Abs Auto 0.01 X10*3/uL (0.00-0.03); Imm Gran Pct Auto 0.2 % (0.0-0.4); Lymphocytes Absolute Auto 1.7 X10*3/uL (1.2-4.9); Lymphocytes Percent Auto 37.8 % (20-40); Mean Corpuscular HGB Conc 32.6 g/dl (31.0-35.0); Mean Corpuscular Hemoglobin 28.8 pg (27.0-33.0); Mean Corpuscular Volume 88.2 fL (80.0-98.0); Monocytes Absolute Auto 0.4 X10*3/uL (0.1-1.2); Monocytes Percent Auto 9.2 % (2-11); Neutrophils Absolute Auto 2.3 x10*3/uL (2.0-8.3); Neutrophils Percent Auto 49.5 % (45-73); Platelet Count 226 X10*3/uL (160-400); Red Blood Count 4.83 X10*6/uL (4.20-5.50); Red Cell Distribution Width 12.5 % (11.0-16.0); White Blood Count 4.6 X10*3/uL (4.8-10.8)
[2022-06-07 08:52] LABS: Estimated Average Glucose 103 mg/dL; Hemoglobin A1c % 5.2 %
[2022-06-07 09:21] LABS: Alanine Aminotransferase 11 U/L (0-31); Albumin Level 3.9 g/dL (3.5-5.0); Alkaline Phosphatase 86 U/L (39-117); Anion Gap 13 (12-20); Aspartate Amino Transferase 16 U/L (5-31); Bilirubin Total 0.7 mg/dL (0.0-1.0); Blood Urea Nitrogen 20 mg/dL (9-16); C Reactive Protein 0.48 mg/dL (< or = 0.50); Calcium 9.2 mg/dL (8.4-10.2); Carbon Dioxide 27 mmol/L (22-29); Chloride 107 mmol/L (96-108); Cholesterol 221 mg/dL; Estimated Glomerular Filt Rate > 60; Glucose Random 93 mg/dL (60-115); HDL Cholesterol 73 mg/dL; Iron 109 mcg/dL (30-160); LDL Cholesterol Calculated 137 mg/dl; Percent Iron Saturation 36 % (15-50); Potassium 4.8 mmol/L (3.3-5.1); Sodium 142 mmol/L (135-145); Total Iron Binding Capacity 304 mcg/dL (228-428); Total Protein 6.3 g/dL (6.5-8.0); Triglycerides 55 mg/dL; Unsaturated Iron Binding 195 ug/dL
[2022-06-07 09:55] LABS: Ferritin 83 ng/mL (10-250); Folate 15.5 ng/mL (> or = 4.0); Insulin 6 uU/mL (2-29); TSH reflex Free T4 0.86 uIU/mL (0.32-4.0); Vitamin B12 364 pg/mL (200-900); Vitamin D 25-OH Total 25.4 ng/mL (>30)
[2022-06-10 14:14] LABS: Calcium (PTHI) 9.4 mg/dL (8.6-10.4); PTHI 64 pg/mL (16-77)
[2022-06-10 23:59] LABS: Zinc 70 mcg/dL (60-130)
[2022-06-11 16:18] LABS: Vitamin A 47 mcg/dL (38-98)
[2022-06-13 18:13] LABS: Vitamin B1 10 nmol/L (8-30)
== END 2022-06-07 07:51 | disposition home or self-care (01) ==
LOC: HO.LAB 07:50
PROVIDERS: Absent Provider Internal Medicine Cardiovascular Disease; PCP Internal Medicine; Visit Provider Physician Assistant Surgical
DX: Z98.84 Bariatric surgery status (principal)
CPT/HCPCS: 36415; 80053; 80061; 82306; 82607; 82728; 82746; 83036; 83525; 83540; 83970; 84425; 84443; 84590; 84630; 85025; 86140

== ENCOUNTER → 2022-06-24 15:48 | Outpatient (REF) | payer BC, SELFPAY ==
--- NOTE | 2022-06-24 15:51 | CA_ITS ---
Transthoracic Echocardiogram Patient (Last, First, Middle): Pat Manuel, Gender: Female Date of : 1965 Age: 56 Procedure Date: 06/24/2022 Procedure Type: Transthoracic Echocardiogram Location: OP Height: 152.4 cm Weight: 79.38 kg BSA: 1.76 m2 Heart Rate: bpm BP: 122 / 60 mmHg Medical Collections Specialist: Referring MD: Johny Poole MD Symptoms: I50.30 - Unspecified diastolic (congestive) heart failure Study Quality: Good ECG Rhythm: Sinus Conclusions: - The left ventricular systolic function is normal. The visually estimated ejection fraction is between 65-70%. - Evidence suggests grade II (moderate) diastolic dysfunction. - The left atrium is severely dilated. - There is mild to moderate mitral valve regurgitation. Findings Left Ventricle Normal left ventricular cavity size. There is moderately increased left ventricular wall thickness. The left ventricular systolic function is normal. The visually estimated ejection fraction is between 65-70%. There is no evidence of regional wall motion abnormalities. E/E prime ratio is >15, consistent with elevated filling pressures. Evidence suggests grade II (moderate) diastolic dysfunction. LV peak GLS -17.3%. Right Ventricle Mildly increased right ventricular cavity size. There is normal right ventricular systolic function. RV free wall strain -31% (normal). Atria The left atrium is severely dilated. The right atrium is normal in size. Aortic Valve There is a normal trileaflet aortic valve. There is no aortic valve stenosis. There is no aortic valve regurgitation. Mitral Valve There is mild mitral annular calcification. There is mild to moderate mitral valve regurgitation. There is no mitral valve stenosis. Pulmonic Valve There is trace pulmonic valve regurgitation. Tricuspid Valve Normal tricuspid valve structure. There is mild tricuspid valve regurgitation. There is no evidence of pulmonary hypertension. Great Vessels The aortic annulus, sinuses of valsalva, and asc aorta are normal in size. Venous The inferior vena cava is normal in size and collapses greater than 50% with inspiration. Pericardium/Pleural There is a small loculated pericardial effusion overlying the left ventricle and right atrium. Prior Study Comparison Changes noted compared to prior study dated: 06/04/2021. see comments on pericardial effusion. Measurements 2D Linear Measurements IVSd: 1.53 0.6-0.9/0.6-1.0 cm LVIDd: 4.46 3.9-5.3/4.2-5.9 cm LVIDd Index: 2.53 2.4-3.2/2.2-3.1 cm/m2 LVIDs: 2.53 2.0-3.6 cm LVPWd: 1.27 0.7-1.1 cm Ao Root: 2.40 2.1-3.5 cm LA Diam: 5.10 2.7-3.8/3.0-4.0 cm LAIDs Index: 2.90 1.5-2.3 cm/m2 LV Mass: 305.70 67-162/88-224 g LV Mass Index: 173.69 43-95/49-115 g/m2 LVOT Diam: 2.00 3.0+(-)1.3 cm 2D Systolic Function EF 4C: 69.20 >55% EF 2C: 75.60 >55% EF BiP: 71.80 >55% Mitral Valve MV Pk E: 1.03 MV PK A: 0.76 MV Decel Time: 194.00 E/A: 1.30 E'Lateral: 4.79 E'Medial: 4.46 E/E' Med: 23.10 E/E' Lat: 21.50 PHT: 57.00 MVA PHT: 3.86 Decel Morrison: 5.31 Aortic Valve AoV Pk Roger: 1.55 AoV Mn Roger: 1.03 AoV VTI: 0.36 AoV Pk Grad: 10.00 Aov Mn Grad: 5.00 ARUN Cont.VTI: 2.22 LVOT LVOT Pk Roger: 0.99 LVOT Mn Roger: 0.64 LVOT VTI: 0.26 LVOT Pk Grad: 4.00 LVOT Mn Grad: 2.00 LVOT Diam: 2.00 LVOT Area: 3.14 Diastolic Function MV Pk E: 1.03 MV Pk A: 0.76 E/A: 1.30 E'Medial: 4.46 E/E' Med: 23.10 E' Laterial: 4.79 E/E' Lat: 21.50 Right Ventricle TAPSE (mm): 25.00 TVS' Roger: 16.00 Tricuspid Valve TR Pk Roger: 2.52 TR Pk Grad: 25.00 RA Press: 3.00 RVSP: 28.00 Great Vessels Aorta Ao Root-2D: 2.40 2.0-3.7 cm Ao Asc: 3.10 2.1-3.4 cm Pulmonary Valve PV Pk Roger: 1.14 Peak PV Grad: 5.00 Updated in Other Vendor System with Status of Final Dalton Parsons MD electronically signed on 06/25/2022 1:46:06 PM with status of Final
== END ==
LOC: HO.CARD 15:48
PROVIDERS: PCP Internal Medicine; Visit Provider Internal Medicine Cardiovascular Disease
DX: I50.30 Unspecified diastolic (congestive) heart failure (principal)
CPT/HCPCS: 93306; 93356

== ENCOUNTER → 2022-07-08 14:51 | Outpatient (BNVA) | payer BC, SELFPAY | PROVIDERS: PCP Internal Medicine; Referring Provider Internal Medicine; Visit Provider Internal Medicine Cardiovascular Disease | DX: Z13.89 Encounter for screening for other disorder (principal) ==

== ENCOUNTER 2022-07-25 09:58 | Outpatient (REF) | payer BC, SELFPAY ==
--- NOTE | ~2022-07-25 | XR_ITS ---
EXAMINATION: XR SACRUM AND COCCYX CLINICAL INFORMATION: Sacrococcygeal disorder. COMPARISON: None available. TECHNIQUE: 3 frontal and lateral views of the sacrum and coccyx were obtained. FINDINGS: There are no fractures. No bone, joint or soft tissue abnormality is demonstrated. There is incompletely characterized degenerative change of the lumbar spine, with a grade 1 anterolisthesis seen at L4-L5. XR/XR sacrum coccyx min 2V IMPRESSION: Unremarkable examination of the sacrum and coccyx.
== END 2022-07-25 09:59 | disposition home or self-care (01) ==
LOC: HO.XRAY 09:58
PROVIDERS: PCP Internal Medicine; Visit Provider Internal Medicine
DX: M53.3 Sacrococcygeal disorders, not elsewhere classified (principal)
CPT/HCPCS: 72220

== ENCOUNTER 2022-10-14 14:32 | Outpatient (AMB) | payer BC, SELFPAY ==
[2022-10-14 14:42] VITALS: BP 122/76; PULSE 67; O2SAT 98; BMI 35.9
--- NOTE | 2022-10-14 14:42 | MHC.PC.OV ---
Vital Signs 10/14/22 14:42 Height 5 ft Weight 184 lb BMI 35.9 BP 122/76 Blood Pressure Location Lt brachial Position Sitting Pulse 67 Pulse Source Pulse Oximeter Pulse Oximetry (%) 98 Oxygen Delivery Method Room Air Intake Visit Reasons: CHF, hyperlipidemia, HTN, meningioma Stone Driller Required: No Accompanied by: Self / Same As Patient Allergies Penicillins [PENICILLINS] Allergy (Intermediate, Verified 05/28/23 13:26) RASH Medication List - Last Reconciled 06/29/23 by Mert Meléndez MD amlodipine 5 mg PO DAILY cholecalciferol (vitamin D3) 50 mcg (2 x 25 mcg (1,000 unit)) PO DAILY metoprolol succinate ER 50 mg PO DAILY pantoprazole 40 mg PO DAILY Tobacco use date assessed: 10/14/22 Dental Screening Dental Screen Date: 10/14/22 Did you have a dental visit in the last 12 months?: Yes Did you have a dental problem in the last 6 months where you did not have access to dental care?: No Was dental information given to patient?: Patient has dentist HPI CHF, hyperlipidemia, HTN, meningioma HPI Details Patient comes in today for her follow up visit States that she feels okay She just completed her fractionated radiation treatments at [facility] last week - states that she tolerated her treatments well overall She denies any increased headaches or dizziness Denies any chest pains, no SOB No nausea/vomiting, no abdominal pain No change in bowel habits noted Was not able to get her follow up labs done prior to her visit today [facility] Medical History (Updated 07/18/22 @ 04:32 by Mert Meléndez MD) Meningioma Obesity (BMI 30-39.9) Grade II diastolic dysfunction Liver fibrosis Left atrial dilation Steatosis, liver GERD (gastroesophageal reflux disease) DJD (degenerative joint disease) COVID-19 vaccine series completed Obesity Cerebral arterial aneurysm Middle cerebral artery aneurysm Preoperative cardiovascular examination Adjustment disorder, unspecified Pre-op evaluation Sleep apnea with use of continuous positive airway pressure (CPAP) Morbid obesity with BMI of 40.0-44.9, adult Obstructive sleep apnea Pure hypercholesterolemia Benign essential hypertension (HFpEF) heart failure with preserved ejection fraction Surgical History S/P laparoscopic sleeve gastrectomy (~08/27/21) History of surgery for cerebral aneurysm (~10/30/20) Hx of left knee surgery History of cardiac catheterization (~11/2019) Family History Father CVD (cardiovascular disease) Colon cancer Mother Gastric cancer Brother CVD (cardiovascular disease) Social History Housing: House Are you a primary resident care supervisor to a significant other at home: No Do you presently have visiting nurse or other home services: No Alcohol intake: never Patient Tobacco Use Status: Never used Tobacco e-Cigarette/Vaping Use: Never Used Second Hand Smoke Exposure: No service: No Current occupational status: employed 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 1. Little interest or pleasure in doing things: not at all 2. Feeling down, depressed, or hopeless: not at all 3. Trouble falling or staying asleep, or sleeping too much: not at all 4. Feeling tired or having little energy: not at all 5. Poor appetite or overeating: not at all 6. Feeling bad about yourself - or that you are a failure or have let yourself or your family down: not at all 7. Trouble concentrating on things, such as reading the newspaper or watching television: not at all 8. Moving or speaking so slowly that other people could have noticed. Or the opposite - being so fidgety or restless that you have been moving around a lot more than usual: not at all 9. Thoughts that you would be better off or of hurting yourself in some way: not at all Total score: 0 Depression Screening Interpretation: Negative [id number] - PHQ-9 Billing: Yes Source: Developed by Drs. Tony Durant, Pat Connor, Ilia Patel and colleagues, with an educational marco a from [employer]. Thrive Questionnaire Date Thrive assessed: 10/14/22 I am a: Patient What is your living situation today?: I have a steady place to live Within the past 12 months, did the food you bought not last and you didn't have the money to get more?: Never true Within the past 12 months, did you worry whether your food would run out before you got money to buy more?: Never true Do you have trouble paying for medicines?: No Do you have trouble getting transportation to medical appointments?: No Do you have trouble paying your heating and electricity bill?: No Do you have trouble taking care of your child, family member or friend?: No Do you have trouble with day-to-day activities such as bathing, preparing meals, shopping, managing finances, etc.?: No Are you currently unemployed and looking for a job?: No Are you interested in more education?: No Currently or been in a relationship where the following occur: no concerns reported AUDIT C Alcohol Use Questionnaire (AUDIT-C) 1. How often do you have a drink containing alcohol?: Never 3. How often do you have six or more drinks on one occasion?: Never Total Score: 0 Score Reviewed/Action Taken: Yes WAQAR-7 AMB Questionnaire WAQAR-7 Date WAQAR - 7 assessed: 10/14/22 Feeling nervous, anxious, or on edge: 0 = Not at all Not being able to stop or control worryin = Not at all Worrying too much about different things: 0 = Not at all Trouble relaxin = Not at all Being so restless that it is hard to sit still: 0 = Not at all Becoming easily annoyed or irritable: 0 = Not at all Feeling afraid as if something awful might happen: 0 = Not at all Total WAQAR-7 score (0-4 normal; 5-9 mild; 10-14 moderate; 15-21 severe): 0 Source: Developed by Drs. Tony Durant, Pat Connor, Ilia Patel and colleagues, with an educational marco a from [employer]. Review of Systems Const Denies chills, Denies fatigue, Denies fever(s) and Denies headache(s) ENT Denies dysphagia, Denies dizziness, Denies otalgia, Denies headache(s), Denies neck pain, Denies odynophagia and Denies sore throat Card Denies chest pain, Denies rapid heart rate, Denies irregular heart rhythm, Denies palpitations and Denies dyspnea Resp Denies chest congestion, Denies cough, Denies dyspnea and Denies wheezing GI Denies abdominal pain, Denies constipation, Denies dysphagia, Denies heartburn, Denies diarrhea, Denies nausea, Denies odynophagia and Denies vomiting Denies hematuria, Denies urinary frequency, Denies dysuria and Denies urinary incontinence Musc Denies back pain, Denies arthralgias and Denies neck pain Skin/Breast Denies rash Neuro Denies dizziness, Denies headache(s) and Denies paresthesias Psych Denies anxiety and Denies depression Endo Denies fatigue and Denies palpitations Molina/Lymph Denies easy bruising Aller/Immun Denies wheezing Physical exam (Primary Care) Vital Signs: Last Vital Signs Pulse 67 10/14/22 14:42 BP 122/76 10/14/22 14:42 Pulse Ox 98 10/14/22 14:42 Oxygen Delivery Method Room Air 10/14/22 14:42 BMI result Body Mass Index 35.9 Tobacco/Smoking Status: Tobacco use Status Tobacco use date assessed 10/14/22 10/14/22 14:47 Patient Tobacco Use Status Never used Tobacco 10/14/22 14:47 e-Cigarette/Vaping Use Never Used 10/14/22 14:47 PHQ-9: PHQ-9 Score PHQ-9: Total score 0 10/14/22 15:24 Depression Screening Interpretation: Negative Thrive Assessment: Date of Thrive Assessment Date Thrive assessed 10/14/22 10/14/22 14:47 Currently or been in a relationship where the following occur: no concerns reported Const General: no acute distress and alert Orientation/consciousness: patient oriented x3 HENMT Ears: TM's normal bilaterally and EAC's normal Throat: Yes posterior oropharynx normal and Yes tonsils normal (no TP congestion) Neck Neck: Yes no lymphadenopathy and Yes supple Thyroid: Thyroid normal Resp Auscultation: clear to auscultation bilaterally, no rales and no wheezes Cardio Rate: regular rate Rhythm: regular rhythm Heart sounds: no murmurs GI Palpation (GI): Soft to palpation and nontender Auscultation: normal bowel sounds General: Yes no CVA tenderness Back/Spine/Pelvis Back: no CVA tenderness Coccyx: Coccyx tenderness present on direct palpation Skin Rashes: no rashes Neuro General: patient oriented x3 and no focal motor deficits Gait exam (Neuro): Normal gait present Extrem General: Yes no clubbing, cyanosis or edema Assessment and Plan Assessment & Plan (1) Meningioma: Comment: of the right cavernous sinus and right anterior clinoid process - was seen incidentally along with left MCA aneurysm on MRI done for headaches S/P COVID vaccine in 2020 Code(s): D32.9 - Benign neoplasm of meninges, unspecified Plan: Was seen by radiation oncology at the [facility] for consultation a few months ago and was recommended radiation treatment Patient decided to undergo radiation Tx closer to home so arrangements were made for her to see radiation oncology at [facility], where she was seen for consultation on 07/23/2022 She started fractionated radiation Tx at [facility] on 09/01/2022, went for Tx 5 times a week for 6 weeks and just completed her treatments about a week agoon 10/06/2022 States that she tolerated her treatments overall with no significant issues (2) Middle cerebral artery aneurysm: Comment: S/P left pterional craniotomy with clipping of large MCA aneurysm on 10/30/[address] Ernie Aquino at the [facility] in [place], [place] Code(s): I67.1 - Cerebral aneurysm, nonruptured Plan: Patient's aneurysm repair on 11/17/2020 went well and she is currently back to normal activities, including working out regularly, participating in [employer] classes and lifting weights Follow-up with neurosurgery as scheduled (3) (HFpEF) heart failure with preserved ejection fraction: Comment: sees [facility] Code(s): I50.30 - Unspecified diastolic (congestive) heart failure Qualifiers: Heart failure chronicity: unspecified Qualified Code(s): I50.30 - Unspecified diastolic (congestive) heart failure Plan: Cardiac MRI done at [facility] on 02/24/2020 showed mild LVH with no evidence of cardiomyopathy.? LVEF was normal at 72%.? There is also mitral valve regurgitation and tricuspid valve regurgitation; right ventricular size is normal with RVEF at 67%; left atrium is moderately dilated and right atrium borderline in size Patient currently appears compensated and no longer requires any diuretics to keep her from getting fluid overloaded Repeat echocardiogram done a few months ago for follow up revealed normal left ventricular systolic function,?with the visually estimated ejection fraction between 65-70%. Findings are suggestive of a grade II (moderate) diastolic dysfunction. The left atrium is severely dilated and there is mild to moderate mitral valve regurgitation Follow up with cardiology as scheduled (4) Benign essential hypertension: Code(s): I10 - Essential (primary) hypertension Plan: Reinforced low sodium diet - goal is systolic BP of 120 mm or less Continue Amlodipine 5 mg QD and Metoprolol ER 50 mg QD (5) Pure hypercholesterolemia: Code(s): E78.00 - Pure hypercholesterolemia, unspecified Plan: Reinforced low cholesterol diet Was on Atorvastatin 40 mg Q HS in the past but this has been discontinued a few months ago She was supposed to recheck her labs and fasting lipids for follow up but has not been able to do so yet as she has been going for her fractionated radiation Tx at [facility] for the past 6 weeks and just completed her treatments a week ago Will just have patient recheck her labs and fasting lipids in 3 months for follow up (6) Obstructive sleep apnea: Code(s): G47.33 - Obstructive sleep apnea (adult) (pediatric) Plan: Continue using her CPAP device daily when sleeping at night but with her significant weight loss, she has been referred back by cardiology to Sleep Medicine for reassessment of her CPAP requirement and to see if she still has MEMO or not (7) Pain in the coccyx: Code(s): M53.3 - Sacrococcygeal disorders, not elsewhere classified Plan: Improving although patient still has some pain / discomfort over her coccygeal area at times with increased activity X-rays of the coccyx done a couple of months ago came out normal Can continue applying Lidocaine 5% cream to the painful areas over her coccyx PRN for symptomatic relief (8) Obesity (BMI 30-39.9): Code(s): E66.9 - Obesity, unspecified Plan: Reinforced diet/exercise as tolerated/lose weight S/P laparoscopic sleeve gastrectomy in August 2021 and she has been able to lose over 50 pounds since Follow up with Weight Management as scheduled Plan Follow up in 3 months Orders: Orders Lipid Panel 3 Months E78.00 - Pure hypercholesterolemia, unspecified Comprehensive [place]. Panel Fast 3 Months E78.00 - Pure hypercholesterolemia, unspecified Coding Level of Care Code Est Pt Level 4 (19997) Diagnoses Meningioma D32.9 Middle cerebral artery aneurysm I67.1 Heart failure with preserved ejection fraction, unspecified HF chronicity I50.30 Heart failure chronicity: unspecified Benign essential hypertension I10 Pure hypercholesterolemia E78.00 Obstructive sleep apnea G47.33 Pain in the coccyx M53.3 Obesity (BMI 30-39.9) E66.9
== END 2022-10-14 15:58 | disposition home or self-care (01) ==
PROVIDERS: Visit Provider Internal Medicine
DX: D32.9 Benign neoplasm of meninges, unspecified (principal); I50.30 Unspecified diastolic (congestive) heart failure; E66.9 Obesity, unspecified; Z68.35 Body mass index [BMI] 35.0-35.9, adult; I67.1 Cerebral aneurysm, nonruptured; G47.33 Obstructive sleep apnea (adult) (pediatric); I10 Essential (primary) hypertension; E78.00 Pure hypercholesterolemia, unspecified; M53.3 Sacrococcygeal disorders, not elsewhere classified
CPT/HCPCS: 99499

== ENCOUNTER 2022-10-28 15:04 | Outpatient (AMB) | payer BC, SELFPAY ==
--- NOTE | 2022-10-28 15:06 | MHC.OFFVISWM ---
Intake VS Expanded 10/28/22 15:10 Height 5 ft Weight 183 lb 12.8 oz BMI 35.9 BP 152/80 H Blood Pressure Location Rt brachial Blood Pressure Position Sitting Pulse 67 Pulse Source Pulse Oximeter Temp 98.1 F Temperature Source Temporal Artery Scan Pulse Oximetry 95 Oxygen Delivery Method Room Air Body Fat 77.2 Body Fat Percentage 42.0 Free Fat Mass 106.4 Muscle Mass 101.0 Visceral Mass 12.0 Water Mass 75.6 BMR 1,476 Intake Visit Reasons: (OV) PO LSG 08/27/21 Allergies Penicillins [PENICILLINS] Allergy (Intermediate, Verified 10/28/22 15:11) RASH HPI HPI Comments History of Present Illness Details This?is a?57?yo female who is s/p LSG 08/27/2021. Presents for 1 year 2 month post op visit. Weight at last visit on 03/11/2022 was 170.2 pounds with a BMI of 33.2, weight today is 183.8 pounds, representing a 13.6 pound weight gain with a BMI today of 35.9.? No complaints of nausea, emesis, or constipation. Started radiation for tumor, affected her appetite. Reports a burning sensation when she eats/drinks. Present meal plan includes: coffee has started to bother her stomach sometimes not hungry all day, but will eat 1-2am previous plan was- breakfast- 2 eggs lunch- 2 scoops Celebrate in 8oz unsweetened almond milk snack- Herbalife protein bar (10g) dinner- protein and veg- take 30 min to eat this meal, chew thoroughly, make sure meat is soft/moist/flaky Exercise routine includes: three days a week reyna x 1 hour, 1 mile walk every morning Did the patient ever have any of these conditions and are they resolved or still being treated? GERD: improved since surgery, starting to have symptoms again MEMO:? needs repeat sleep study DM:? never HTN:? amlodipine, metoprolol Hyperlipidemia:? never Post op complications:? none PFSH Medical History (Updated 07/18/22 @ 04:32 by Mert Meléndez MD) (HFpEF) heart failure with preserved ejection fraction Adjustment disorder, unspecified Benign essential hypertension Cerebral arterial aneurysm COVID-19 vaccine series completed DJD (degenerative joint disease) GERD (gastroesophageal reflux disease) Grade II diastolic dysfunction Left atrial dilation Liver fibrosis Meningioma Middle cerebral artery aneurysm Morbid obesity with BMI of 40.0-44.9, adult Obesity Obesity (BMI 30-39.9) Obstructive sleep apnea Pre-op evaluation Preoperative cardiovascular examination Pure hypercholesterolemia Sleep apnea with use of continuous positive airway pressure (CPAP) Steatosis, liver Surgical History (Reviewed 10/28/22 @ 15:11 by Sondra Hope [facility]) History of cardiac catheterization (~11/2019) History of surgery for cerebral aneurysm (~10/30/20) Hx of left knee surgery S/P laparoscopic sleeve gastrectomy (~08/27/21) Family History Father CVD (cardiovascular disease) Colon cancer Mother Gastric cancer Brother CVD (cardiovascular disease) Social History Housing: House Are you a primary animal caregiver to a significant other at home: No Do you presently have visiting nurse or other home services: No Alcohol intake: never Patient Tobacco Use Status: Never used Tobacco e-Cigarette/Vaping Use: Never Used Second Hand Smoke Exposure: No service: No Current occupational status: employed 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 Balderas Code(s): Z98.84 - Bariatric surgery status Plan Discussed that heartburn symptoms likely related to inadequate meal plan. Pt will restart high protein meal plan, avoid coffee on empty stomach, avoid skipping meals and eating late at night. 2 Herbalife shakes, 1 Atkins protein bar, and 1 small meal of protein per day. Continue exercise regimen. PCP has already ordered some labs, will add vitamin levels. Pt would like weekly weight checks for accountability. RTC in February for 18 month visit; encouraged pt to schedule visit sooner if needed. Meal plan texted to pt and encouraged her to reach out between appts with any questions. Patient is obese and is not considered stable at this time. I spent a total of 30 minutes reviewing/updating records, examining the patient and counseling the patient on weight management as detailed above. Orders: Orders Vitamin A Today Z98.84 - Bariatric surgery status PTHI Today Z98.84 - Bariatric surgery status Zinc Today Z98.84 - Bariatric surgery status Vitamin B12 and Folate Today Z98.84 - Bariatric surgery status Vitamin B1 Today Z98.84 - Bariatric surgery status Insulin Today Z98.84 - Bariatric surgery status Hemoglobin A1c Today Z98.84 - Bariatric surgery status IRON PROFILE Today Z98.84 - Bariatric surgery status Ferritin Today Z98.84 - Bariatric surgery status C Reactive Protein Today Z98.84 - Bariatric surgery status Medications: New pantoprazole 40 mg PO DAILY 90 tabs 1RF Coding Level of Care Code Est Pt Level 4 (92985) Diagnoses Obesity (BMI 30-39.9) E66.9 S/P laparoscopic sleeve gastrectomy Z98.84
[2022-10-28 15:10] VITALS: BP 152/80; PULSE 67; TEMP 36.7; O2SAT 95; BMI 35.9
== END 2022-10-28 15:40 | disposition home or self-care (01) ==
PROVIDERS: PCP Internal Medicine; Visit Provider Physician Assistant Surgical
DX: E66.9 Obesity, unspecified (principal); Z68.35 Body mass index [BMI] 35.0-35.9, adult; Z90.3 Acquired absence of stomach [part of]; Z98.84 Bariatric surgery status
CPT/HCPCS: 99214

== ENCOUNTER → 2022-10-28 15:04 | Outpatient (BNVA) | payer BC, SELFPAY | PROVIDERS: PCP Internal Medicine; Visit Provider Physician Assistant Surgical ==

== ENCOUNTER → 2022-11-06 15:48 | Outpatient (BNVA) | payer BC, SELFPAY | PROVIDERS: PCP Internal Medicine; Visit Provider Physician Assistant Surgical ==

== ENCOUNTER → 2022-11-13 14:12 | Outpatient (BNVA) | payer BC, SELFPAY | PROVIDERS: PCP Internal Medicine; Visit Provider Physician Assistant Surgical ==

== ENCOUNTER → 2022-11-20 15:46 | Outpatient (BNVA) | payer BC, SELFPAY | PROVIDERS: PCP Internal Medicine; Visit Provider Physician Assistant Surgical ==

== ENCOUNTER → 2022-11-27 15:44 | Outpatient (BNVA) | payer BC, SELFPAY | PROVIDERS: PCP Internal Medicine; Visit Provider Physician Assistant Surgical ==

== ENCOUNTER → 2022-12-04 15:47 | Outpatient (BNVA) | payer BC, SELFPAY | PROVIDERS: PCP Internal Medicine; Visit Provider Physician Assistant Surgical ==

== ENCOUNTER → 2022-12-11 15:45 | Outpatient (BNVA) | payer BC, SELFPAY | PROVIDERS: PCP Internal Medicine; Visit Provider Physician Assistant Surgical ==

== ENCOUNTER → 2022-12-18 15:45 | Outpatient (BNVA) | payer BC, SELFPAY | PROVIDERS: PCP Internal Medicine; Visit Provider Physician Assistant Surgical ==

== ENCOUNTER → 2022-12-25 15:45 | Outpatient (BNVA) | payer BC, SELFPAY | PROVIDERS: PCP Internal Medicine; Visit Provider Physician Assistant Surgical ==

== ENCOUNTER 2023-02-24 12:52 | Outpatient (AMB) | payer BC, SELFPAY ==
--- NOTE | 2023-02-24 13:08 | MHC.OFFVISWM ---
Intake VS Expanded 02/24/23 13:36 BP 150/78 H Blood Pressure Location Rt brachial Blood Pressure Position Sitting Pulse 61 Pulse Source Pulse Oximeter Temp 98.2 F Temperature Source Temporal Artery Scan Pulse Oximetry 96 Oxygen Delivery Method Room Air Height 5 ft Weight 185 lb 12.8 oz BMI 36.3 Body Fat % 44.2 Body Fat Mass 82.0 Fat Free Mass 103.6 Visceral Fat Rating 13.0 Body Water % 39.5 Body Water Mass 73.4 Muscle Mass/Score 98.4 Basal Metabolic Rate/Score 1,450 Intake Visit Reasons: (OV) PO LSG 08/27/21 Allergies Penicillins [PENICILLINS] Allergy (Intermediate, Verified 02/24/23 13:10) RASH Medication List - Last Reconciled 02/24/23 by ALLISON Khan amlodipine 5 mg PO DAILY cholecalciferol (vitamin D3) 25 mcg PO DAILY metoprolol succinate ER 50 mg PO DAILY HPI HPI Comments History of Present Illness Details This?is a?57?yo female who is s/p LSG 08/27/2021. Presents for 18 month post op visit. 2lbs weight gain since last visit in October. Occasional abdominal pain near central incision, continues to have reflux mostly in afternoon. Pt reports a lot of weight fluctuations. Feels a lot of stress recently after treatment for brain tumor. Reports BP has been high recently but did not take her meds today. Has PCP appt later today. Also noticed some increased swelling, was previously on a diuretic. Plans to call radar engineering teacher to move up appt. Present meal plan includes: 2 Herbalife shakes, 1 Atkins protein bar, and 1 small meal of protein per day given at last office visit reports a lot of nighttime hunger, has a breakfast and then a shake for lunch; does not eat for several hours in afternoon breakfast- 1 scrambled egg lunch- Herbalife shake dinner- small piece of meat, with broccoli with cheese or salad All meals last 20 - 30 minutes and does not drink and eat at the same time. Exercise routine includes: three days a week reyna x 1 hour, 1 mile walk every morning Did the patient ever have any of these conditions and are they resolved or still being treated? GERD: improved since surgery, starting to have symptoms again MEMO:? needs repeat sleep study DM:? never HTN:? amlodipine, metoprolol Hyperlipidemia:? never Post op complications:? none PFSH Medical History (Updated 07/18/22 @ 04:32 by Mert Meléndez MD) Meningioma Obesity (BMI 30-39.9) Grade II diastolic dysfunction Liver fibrosis Left atrial dilation Steatosis, liver GERD (gastroesophageal reflux disease) DJD (degenerative joint disease) COVID-19 vaccine series completed Obesity Cerebral arterial aneurysm Middle cerebral artery aneurysm Preoperative cardiovascular examination Adjustment disorder, unspecified Pre-op evaluation Sleep apnea with use of continuous positive airway pressure (CPAP) Morbid obesity with BMI of 40.0-44.9, adult Obstructive sleep apnea Pure hypercholesterolemia Benign essential hypertension (HFpEF) heart failure with preserved ejection fraction Surgical History S/P laparoscopic sleeve gastrectomy (~08/27/21) History of surgery for cerebral aneurysm (~10/30/20) Hx of left knee surgery History of cardiac catheterization (~11/2019) Family History Father CVD (cardiovascular disease) Colon cancer Mother Gastric cancer Brother CVD (cardiovascular disease) Social History Housing: House Are you a primary pulmonary care nurse to a significant other at home: No Do you presently have visiting nurse or other home services: No Alcohol intake: never Patient Tobacco Use Status: Never used Tobacco e-Cigarette/Vaping Use: Never Used Second Hand Smoke Exposure: No service: No Current occupational status: employed 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 Balderas Code(s): Z98.84 - Bariatric surgery status (3) GERD (gastroesophageal reflux disease): Code(s): K21.9 - Gastro-esophageal reflux disease without esophagitis Plan Pt still not getting adequate protein intake. I suggested adding a second shake in afternoon (24g) to help get total protein intake closer to goal of 70g/day. This will likely also help with her reflux symptoms which seem to be correlated with a long period of time between lunch and dinner where she is not eating/drinking anything and having worsening of symptoms. Will also prescribe PPI she can use as needed. Will start keeping a food journal as she reports occasional upper abdominal pain with meals after eating meat. Can consider additional workup for pain if not improved with meal plan changes and initiation of PPI. 18 month labs ordered. RTC 3 months. Encouraged pt to text between appts with any questions or concerns. Patient is obese and is not considered stable at this time. I spent a total of 30 minutes reviewing/updating records, examining the patient and counseling the patient on weight management as detailed above. Medications: New pantoprazole 40 mg PO DAILY 90 tabs 1RF Coding Level of Care Code Est Pt Level 4 (36456) Diagnoses Obesity (BMI 30-39.9) E66.9 S/P laparoscopic sleeve gastrectomy Z98.84 GERD (gastroesophageal reflux disease) K21.9
[2023-02-24 13:36] VITALS: BP 150/78; PULSE 61; TEMP 36.8; O2SAT 96; BMI 36.3
== END 2023-02-24 13:42 | disposition home or self-care (01) ==
PROVIDERS: PCP Internal Medicine; Visit Provider Physician Assistant Surgical
DX: E66.9 Obesity, unspecified (principal); Z68.36 Body mass index [BMI] 36.0-36.9, adult; Z90.3 Acquired absence of stomach [part of]; Z98.84 Bariatric surgery status; K21.9 Gastro-esophageal reflux disease without esophagitis
CPT/HCPCS: 99214

== ENCOUNTER → 2023-02-24 12:52 | Outpatient (BNVA) | payer BC, SELFPAY | PROVIDERS: PCP Internal Medicine; Visit Provider Physician Assistant Surgical | DX: Z98.84 Bariatric surgery status (principal) ==

== ENCOUNTER 2023-04-24 09:27 | Outpatient (REF) | payer BC, SELFPAY | END 2023-04-24 09:28 | disposition home or self-care (01) | LOC: HO.LAB 09:27 | PROVIDERS: PCP Internal Medicine; Visit Provider Internal Medicine | DX: R30.0 Dysuria (principal); E55.9 Vitamin D deficiency, unspecified; I10 Essential (primary) hypertension; E78.00 Pure hypercholesterolemia, unspecified | CPT/HCPCS: 36415; 80053; 80061; 81003; 82306; 84443; 85025 ==

== ENCOUNTER 2023-05-28 13:20 | Outpatient (AMB) | payer BC, SELFPAY ==
--- NOTE | 2023-05-28 13:24 | MHC.OFFVISWM ---
Intake VS Expanded 05/28/23 13:31 BP 175/93 H Blood Pressure Location Rt brachial Blood Pressure Position Sitting Pulse 93 Pulse Source Pulse Oximeter Temp 97.1 F Temperature Source Temporal Artery Scan Pulse Oximetry 95 Oxygen Delivery Method Room Air Height 5 ft Weight 196 lb 9.6 oz BMI 38.4 Body Fat % 45.7 Body Fat Mass 89.8 Fat Free Mass 106.8 Visceral Fat Rating 14.0 Body Water % 38.5 Body Water Mass 75.6 Muscle Mass/Score 101.2 Basal Metabolic Rate/Score 1,500 Intake Visit Reasons: (OV) PO LSG 08/27/21 Allergies Penicillins [PENICILLINS] Allergy (Intermediate, Verified 05/28/23 13:26) RASH Medication List - Last Reconciled 05/28/23 by ALLISON Khan amlodipine 5 mg PO DAILY cholecalciferol (vitamin D3) 25 mcg PO DAILY metoprolol succinate ER 50 mg PO DAILY pantoprazole 40 mg PO DAILY HPI HPI Comments History of Present Illness Details This?is a?57?yo female who is s/p LSG 08/27/2021. Presents for 21 month post op visit. Weight at last visit on 02/24/2023 was 185.8 pounds with a BMI of 36.3, weight today is 196.6 pounds, representing a 10.8 pound weight gain with a BMI today of 38.4.? No complaints of nausea, emesis, abdominal pain or reflux, or constipation. Pt reports a lot of life stress, overtime at work. I don't eat during the day, then I eat at night. Has started radiation for cranial tumor. Did not take BP med today. Present meal plan includes: reports a lot of nighttime hunger, has a breakfast and then a shake for lunch; does not eat for several hours in afternoon breakfast- 2 eggs, 1 coffee with Stevia lunch- Herbalife shake dinner- small piece of meat (fish or chicken), with broccoli or cauliflower eating peanuts for snack, oatmeal 3x/week and fruit the other days another protein shake advised at last visit but pt did not implement Exercise routine includes: three days a week reyna x 1 hour, 1 mile walk every morning [facility] Medical History (Updated 07/18/22 @ 04:32 by Mert Meléndez MD) Meningioma Obesity (BMI 30-39.9) Grade II diastolic dysfunction Liver fibrosis Left atrial dilation Steatosis, liver GERD (gastroesophageal reflux disease) DJD (degenerative joint disease) COVID-19 vaccine series completed Obesity Cerebral arterial aneurysm Middle cerebral artery aneurysm Preoperative cardiovascular examination Adjustment disorder, unspecified Pre-op evaluation Sleep apnea with use of continuous positive airway pressure (CPAP) Morbid obesity with BMI of 40.0-44.9, adult Obstructive sleep apnea Pure hypercholesterolemia Benign essential hypertension (HFpEF) heart failure with preserved ejection fraction Surgical History S/P laparoscopic sleeve gastrectomy (~08/27/21) History of surgery for cerebral aneurysm (~10/30/20) Hx of left knee surgery History of cardiac catheterization (~11/2019) Family History Father CVD (cardiovascular disease) Colon cancer Mother Gastric cancer Brother CVD (cardiovascular disease) Social History Housing: House Are you a primary day care provider to a significant other at home: No Do you presently have visiting nurse or other home services: No Alcohol intake: never Patient Tobacco Use Status: Never used Tobacco e-Cigarette/Vaping Use: Never Used Second Hand Smoke Exposure: No service: No Current occupational status: employed 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 Balderas Code(s): Z98.84 - Bariatric surgery status Plan Encouraged pt to transition off Herbalife shakes, pt will go to [employer] and purchase Celebrate shakes. New meal plan: breakfast- 2 eggs lunch- Celebrate shake 2 scoops in 8oz UAM dinner- 5 forks protein, 5 forks salad/veg after dinner- another shake Will arrange BH group with Korina. Increase vit D dose to 50mcg. Pt needs to be consistent with BP med, take when she gets home today. Has cardiology appt next month. RTC 3 months for 2 year visit. Encouraged pt to text me weekly with weight updates for accountability. Patient is obese and is not considered stable at this time. I spent a total of 30 minutes reviewing/updating records, examining the patient and counseling the patient on weight management as detailed above. Medications: Changed From cholecalciferol (vitamin D3) 25 mcg PO DAILY 90 caps 3RF To cholecalciferol (vitamin D3) 50 mcg (2 x 25 mcg (1,000 unit)) PO DAILY 90 caps 3RF Coding Level of Care Code Est Pt Level 4 (56747) Diagnoses Obesity (BMI 30-39.9) E66.9 S/P laparoscopic sleeve gastrectomy Z98.84
[2023-05-28 13:31] VITALS: BP 175/93; PULSE 93; TEMP 36.2; O2SAT 95; BMI 38.4
== END 2023-05-28 14:04 | disposition home or self-care (01) ==
PROVIDERS: PCP Internal Medicine; Visit Provider Physician Assistant Surgical
DX: E66.9 Obesity, unspecified (principal); Z68.38 Body mass index [BMI] 38.0-38.9, adult; Z90.3 Acquired absence of stomach [part of]; Z98.84 Bariatric surgery status
CPT/HCPCS: 99214

== ENCOUNTER → 2023-05-28 13:20 | Outpatient (BNVA) | payer BC, SELFPAY | PROVIDERS: PCP Internal Medicine; Visit Provider Physician Assistant Surgical ==

== ENCOUNTER → 2023-06-11 15:47 | Outpatient (BNVA) | payer BC, SELFPAY | PROVIDERS: PCP Internal Medicine; Visit Provider Physician Assistant Surgical ==

== ENCOUNTER → 2023-06-18 15:43 | Outpatient (BNVA) | payer BC, SELFPAY | PROVIDERS: PCP Internal Medicine; Visit Provider Physician Assistant Surgical ==

== ENCOUNTER 2023-06-22 14:47 | Outpatient (AMB) | payer BC, SELFPAY ==
--- NOTE | 2023-06-22 14:50 | MHC.OFFVIS ---
Intake Vital Signs 06/22/23 14:53 Height 5 ft Weight 202 lb 13.204 oz BMI 39.6 BP 130/70 Blood Pressure Location Lt brachial Position Sitting Pulse 69 Intake Visit Reasons: 1 year follow up after echo Intake Note: 1 year follow-up after echo with ekg with weight gain c/o sob on excertion Fuse Cup Expander Required: No Allergies Penicillins [PENICILLINS] Allergy (Intermediate, Verified 05/28/23 13:26) RASH Medication List - Last Reconciled 06/22/23 by Johny Poole MD amlodipine 5 mg PO DAILY cholecalciferol (vitamin D3) 50 mcg (2 x 25 mcg (1,000 unit)) PO DAILY metoprolol succinate ER 50 mg PO DAILY pantoprazole 40 mg PO DAILY HPI HPI Comments History of Present Illness Details Pat comes for follow-up. Since I last saw her she got some radiation therapy for meningioma. She continues to have intermittent headaches. She says she was stressed about this diagnosis and had not been taking care of herself. She has gained weight. At the end of surgery shows 160 lb, she is now up to 196 lb. She is working with bariatric team again to try to lose weight medically. She has been eating better and trying to exercise. However since weight gain she is noticing some more shortness of breath. Denies any orthopnea, PND, leg edema. Blood pressures been well controlled. No prolonged palpitation irregular heartbeat. [facility] Medical History (Updated 07/18/22 @ 04:32 by Mert Meléndez MD) Meningioma Obesity (BMI 30-39.9) Grade II diastolic dysfunction Liver fibrosis Left atrial dilation Steatosis, liver GERD (gastroesophageal reflux disease) DJD (degenerative joint disease) COVID-19 vaccine series completed Obesity Cerebral arterial aneurysm Middle cerebral artery aneurysm Preoperative cardiovascular examination Adjustment disorder, unspecified Pre-op evaluation Sleep apnea with use of continuous positive airway pressure (CPAP) Morbid obesity with BMI of 40.0-44.9, adult Obstructive sleep apnea Pure hypercholesterolemia Benign essential hypertension (HFpEF) heart failure with preserved ejection fraction Surgical History S/P laparoscopic sleeve gastrectomy (~08/27/21) History of surgery for cerebral aneurysm (~10/30/20) Hx of left knee surgery History of cardiac catheterization (~11/2019) Family History Father CVD (cardiovascular disease) Colon cancer Mother Gastric cancer Brother CVD (cardiovascular disease) Social History Housing: House Are you a primary long term acute care registered nurse to a significant other at home: No Do you presently have visiting nurse or other home services: No Alcohol intake: never Patient Tobacco Use Status: Never used Tobacco e-Cigarette/Vaping Use: Never Used Second Hand Smoke Exposure: No service: No Current occupational status: employed 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 Cognitive needs: No Hearing needs: No Vision needs: No Review of Systems Const Denies chills, Denies fatigue, Denies fever(s), Denies frequent falls, Denies weakness, Denies weight gain and Denies weight loss ENT Denies dizziness Card Denies chest pain, Denies leg edema, Denies lightheadedness, Denies palpitations, Denies dyspnea, Denies dyspnea on exertion, Denies orthopnea and Denies other (loss of consciousness) Resp Denies cough, Denies dyspnea and Denies dyspnea on exertion GI Denies hematochezia and Denies change in stool character Musc Denies abnormal gait, Denies muscle weakness, Denies numbness, Denies radiating pain into limb and Denies tingling Neuro Denies abnormal gait, Denies dizziness, Denies frequent falls, Denies numbness, Denies tingling and Denies weakness Endo Denies fatigue and Denies palpitations Physical Exam Vital Signs: Last Vital Signs Pulse 69 06/22/23 14:53 BP 130/70 06/22/23 14:53 BMI result Body Mass Index 39.6 Const General: cooperative, comfortable, no acute distress, alert and awake Nutritional Appearance: obese Orientation/consciousness: patient oriented x3 Limitations: no limitations Neck Neck: Yes trachea midline, Yes supple and Yes no JVD Resp Effort & Inspection: normal respiratory effort Auscultation: clear to auscultation bilaterally Cardio Jugular venous distension: no JVD Palpation: normal PMI Rate: regular rate Rhythm: regular rhythm Heart sounds: S1 normal heart sound present and S2 normal heart sound present GI Auscultation: normal bowel sounds Skin General skin exam: no rashes or lesions noted Neuro General: patient oriented x3 and no focal motor deficits Extrem General: No clubbing, No cyanosis and No edema Psych Appearance: grossly normal Office Procedures EKG Details: EKG shows normal sinus rhythm with normal EKG [id number], Complete Assessment & Plan Assessment & Plan (1) (HFpEF) heart failure with preserved ejection fraction: Comment: sees [facility] Code(s): I50.30 - Unspecified diastolic (congestive) heart failure Qualifiers: Heart failure chronicity: unspecified Qualified Code(s): I50.30 - Unspecified diastolic (congestive) heart failure Plan: Prior history of heart failure with preserved ejection fraction setting of morbid obesity uncontrolled blood pressure with moderate LVH with diastolic dysfunction. Clinically she is getting increasing some shortness of breath which to me appears to be related to weight gain with underlying diastolic dysfunction. I strongly recommended her to participate in aggressive weight loss program to avoid recurrence of her heart failure syndrome. Clinically appears to be euvolemic and well compensated. No indication for diuretic therapy. Continue aggressive blood pressure control which is currently well optimized on current medications. Advised to watch for signs and symptoms of heart failure low-salt diet was advised. Recommend to participate in regular physical activity. Will follow up in the clinic in 1 year's time, sooner p.r.n.. Thank you for allowing me to partake in her care Coding Level of Care Code Est Pt Level 3 (51213) Diagnoses Heart failure with preserved ejection fraction, unspecified HF chronicity I50.30 Heart failure chronicity: unspecified CPT Codes EKG - CPT: 34359-[id number], Complete ([id number])
[2023-06-22 14:53] VITALS: BP 130/70; PULSE 69; BMI 39.6
== END 2023-06-22 15:13 | disposition home or self-care (01) ==
PROVIDERS: PCP Internal Medicine; Visit Provider Internal Medicine Cardiovascular Disease
DX: I50.30 Unspecified diastolic (congestive) heart failure (principal)
CPT/HCPCS: 93010; 99213

== ENCOUNTER → 2023-06-22 14:47 | Outpatient (BNVA) | payer BC, SELFPAY | PROVIDERS: Visit Provider Internal Medicine Cardiovascular Disease | DX: I50.30 Unspecified diastolic (congestive) heart failure (principal) | CPT/HCPCS: 93005 ==

== ENCOUNTER → 2023-06-25 15:46 | Outpatient (BNVA) | payer BC, SELFPAY | PROVIDERS: PCP Internal Medicine; Visit Provider Physician Assistant Surgical ==

== ENCOUNTER → 2023-07-02 15:49 | Outpatient (BNVA) | payer BC, SELFPAY | PROVIDERS: PCP Internal Medicine; Visit Provider Physician Assistant Surgical ==

== ENCOUNTER → 2023-07-09 15:53 | Outpatient (BNVA) | payer BC, SELFPAY | PROVIDERS: PCP Internal Medicine; Visit Provider Physician Assistant Surgical ==

== ENCOUNTER → 2023-07-16 15:41 | Outpatient (BNVA) | payer BC, SELFPAY | PROVIDERS: PCP Internal Medicine; Visit Provider Physician Assistant Surgical ==

== ENCOUNTER 2023-12-29 10:08 | Outpatient (REF) | payer BC, SELFPAY ==
[2023-12-29 11:23] LABS: Hematocrit 40.2 % (37.0-47.0); Hemoglobin 13.4 g/dl (12.0-16.0); Mean Corpuscular HGB Conc 33.3 g/dl (31.0-35.0); Mean Corpuscular Hemoglobin 29.1 pg (27.0-33.0); Mean Corpuscular Volume 87.2 fL (80.0-98.0); Mean Platelet Volume 11.6 fL (9.4-12.3); Platelet Count 219 X10*3/uL (160-400); Red Blood Count 4.61 X10*6/uL (4.20-5.50); Red Cell Distribution Width 12.7 % (11.0-16.0); White Blood Count 6.2 X10*3/uL (4.8-10.8)
[2023-12-29 11:28] LABS: Prothrombin Time 12.7 SEC (11.1-13.3)
[2023-12-29 11:43] LABS: B Type Natriuretic Peptide 270 pg/mL (<100)
[2023-12-29 12:30] LABS: Anion Gap 11 (12-20); Blood Urea Nitrogen 21 mg/dL (9-16); Carbon Dioxide 26 mmol/L (22-29); Chloride 108 mmol/L (96-108); Estimated Glomerular Filt Rate > 60; Glucose Random 104 mg/dL (60-115); Potassium 4.1 mmol/L (3.3-5.1); Sodium 141 mmol/L (135-145)
== END 2023-12-29 10:09 | disposition home or self-care (01) ==
LOC: HO.LAB 10:08
PROVIDERS: PCP Internal Medicine; Visit Provider Internal Medicine Cardiovascular Disease
DX: R07.9 Chest pain, unspecified (principal)
CPT/HCPCS: 36415; 80048; 83880; 85027; 85610

== ENCOUNTER 2023-12-29 10:08 | Outpatient (AMB) | payer BC, SELFPAY ==
[2023-12-29 10:10] VITALS: BP 142/76; PULSE 69; BMI 40.0
--- NOTE | 2023-12-29 10:10 | MHC.OFFVIS ---
Vital Signs 12/29/23 10:10 Height 5 ft Weight 205 lb 0.478 oz BMI 40.0 BP 142/76 H Blood Pressure Location Lt brachial Position Sitting Pulse 69 Intake Visit Reasons: fu- sob , near syncope Intake Note: Follow-up c/o sob and when she can't breath then she feeling she going to pass out Research And Development Tester Required: No Allergies Penicillins [PENICILLINS] Allergy (Intermediate, Verified 05/28/23 13:26) RASH Medication List - Last Reconciled 12/29/23 by Johny Poole MD amlodipine 5 mg PO DAILY cholecalciferol (vitamin D3) 50 mcg (2 x 25 mcg (1,000 unit)) PO DAILY metoprolol succinate ER 50 mg PO DAILY pantoprazole 40 mg PO DAILY HPI Comments Details: Pat comes for follow-up. She request an urgent visit as over the last 3 weeks she has been getting increasing symptoms of exertional chest tightness along with shortness of breath. She said symptoms happen at work when she is walking to do her work should get the symptoms of chest tightness and then she gets short of breath. Few days ago she had much more severe episode that lasted for several minutes. She got concerned. No symptoms at rest. Symptoms only happen with exertion. She notices a blood pressure at home are slightly elevated in the lower 140s. She is not be using a CPAP machine for some time. She has been gaining some weight as well. She denies any prolonged palpitation irregular heartbeat. No lightheadedness, syncope. [facility] Medical History Meningioma Obesity (BMI 30-39.9) Grade II diastolic dysfunction Liver fibrosis Left atrial dilation Steatosis, liver GERD (gastroesophageal reflux disease) DJD (degenerative joint disease) COVID-19 vaccine series completed Obesity Cerebral arterial aneurysm Middle cerebral artery aneurysm Preoperative cardiovascular examination Adjustment disorder, unspecified Pre-op evaluation Sleep apnea with use of continuous positive airway pressure (CPAP) Morbid obesity with BMI of 40.0-44.9, adult Obstructive sleep apnea Pure hypercholesterolemia Benign essential hypertension (HFpEF) heart failure with preserved ejection fraction Surgical History S/P laparoscopic sleeve gastrectomy (~08/27/21) History of surgery for cerebral aneurysm (~10/30/20) Hx of left knee surgery History of cardiac catheterization (~11/2019) Family History Father CVD (cardiovascular disease) Colon cancer Mother Gastric cancer Brother CVD (cardiovascular disease) Social History Housing: House Are you a primary aged or disabled carer to a significant other at home: No Do you presently have visiting nurse or other home services: No Alcohol intake: never Patient Tobacco Use Status: Never used Tobacco e-Cigarette/Vaping Use: Never Used Second Hand Smoke Exposure: No service: No Current occupational status: employed 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 Cognitive needs: No Hearing needs: No Vision needs: No Review of Systems Const Denies chills, Denies fatigue, Denies fever(s), Denies frequent falls, Denies weakness, Denies weight gain and Denies weight loss ENT Denies dizziness Card Denies chest pain, Denies leg edema, Denies lightheadedness, Denies palpitations, Reports dyspnea, Denies dyspnea on exertion, Denies orthopnea and Denies other (loss of consciousness) Resp Denies cough, Reports dyspnea and Denies dyspnea on exertion GI Denies hematochezia and Denies change in stool character Musc Denies abnormal gait, Denies muscle weakness, Denies numbness, Denies radiating pain into limb and Denies tingling Neuro Denies abnormal gait, Denies dizziness, Denies frequent falls, Denies numbness, Denies tingling and Denies weakness Endo Denies fatigue and Denies palpitations Physical Exam Vital Signs: Last Vital Signs Pulse 69 12/29/23 10:10 BP 142/76 H 12/29/23 10:10 BMI result Body Mass Index 40.0 Const General: cooperative, comfortable, no acute distress, alert and awake Nutritional Appearance: obese Orientation/consciousness: patient oriented x3 Limitations: no limitations Neck Neck: Yes trachea midline, Yes supple and Yes no JVD Resp Effort & Inspection: normal respiratory effort Auscultation: clear to auscultation bilaterally Cardio Jugular venous distension: no JVD Palpation: normal PMI Rate: regular rate Rhythm: regular rhythm Heart sounds: S1 normal heart sound present and S2 normal heart sound present GI Auscultation: normal bowel sounds Skin General skin exam: no rashes or lesions noted Neuro General: patient oriented x3 and no focal motor deficits Extrem General: No clubbing, No cyanosis and No edema Psych Appearance: grossly normal Assessment & Plan Assessment & Plan (1) Exertional chest pain: Code(s): R07.9 - Chest pain, unspecified Category: Medical Plan: Recent onset exertional chest pain with shortness of breath which is quite limiting and concerning. Could be related to myocardial ischemia obstructive coronary artery disease. Other potential etiologies include exercise-induced hypertension subendocardial ischemia related to significant left ventricular hypertrophy. Also probably related to heart failure preserved ejection fraction. Anxiety is also possibility. I would suggest her to undergo cardiac catheterization with right and left heart catheterization to evaluate for coronary artery disease as well as to evaluate for elevated left ventricular filling pressures. This was discussed with her. She is agreeable. Discussed the risks, benefits, alternatives. Also possibility of worsening heart failure syndrome and/or left ventricular hypertrophy. Advise to obtain echocardiogram. Meanwhile will start on isosorbide 30 mg daily as well as low-dose aspirin therapy till we have the cardiac catheterization findings. Other possibility includes anxiety and if she does not have significant left heart failure and/or coronary disease, treatment of anxiety should help. Also suggest a in-lab sleep study as she has prior history of sleep apnea and may be developing related to recent gain in weight redevelopment of sleep apnea which may require therapy and may cause cardiovascular issues including elevated left ventricular filling pressures and uncontrolled blood pressures. Advised to monitor blood pressure at home. Stress mitigation strategies were advised. Continue participate in weight loss program. Low-salt diet was discussed. (2) (HFpEF) heart failure with preserved ejection fraction: Comment: sees [facility] Code(s): I50.30 - Unspecified diastolic (congestive) heart failure Category: Medical Qualifiers: Heart failure chronicity: unspecified Qualified Code(s): I50.30 - Unspecified diastolic (congestive) heart failure Plan: Prior history of heart failure preserved ejection fraction related to significant diastolic dysfunction related to hypertensive heart disease. Will follow-up echocardiogram as above. Currently does not appear to be significantly fluid overloaded although this is difficult due to her body habitus. Will check BMP and BNP today. Continue aggressive blood pressure control. Will add isosorbide for her regimen. Will follow up with her after cardiac catheterization. Thank you for allowing me to partake in his care Orders: Orders Cardiac Cath IVETT Diagnostic 2 Weeks R07.9 - Chest pain, unspecified Basic Metabolic Panel Today R07.9 - Chest pain, unspecified Complete Blood Count no Diff Today R07.9 - Chest pain, unspecified CA echo transthoracic complete Today I50.30 - Unspecified diastolic (congestive) heart failure B Type Natriuretic Peptide Today R07.9 - Chest pain, unspecified Prothrombin Time INR Today R07.9 - Chest pain, unspecified RT PSG in-lab sleep study Today G47.30 - Sleep apnea, unspecified Medications: New aspirin (Ecotrin Low Strength) 81 mg PO DAILY 30 tabs 2RF I50.30 - Unspecified diastolic (congestive) heart failure isosorbide mononitrate ER 30 mg PO DAILY 30 tabs 5RF I50.30 - Unspecified diastolic (congestive) heart failure Coding Level of Care Code Est Pt Level 4 (45204) Diagnoses Exertional chest pain R07.9 Heart failure with preserved ejection fraction, unspecified HF chronicity I50.30 Heart failure chronicity: unspecified
== END 2023-12-29 11:06 | disposition home or self-care (01) ==
PROVIDERS: PCP Internal Medicine; Visit Provider Internal Medicine Cardiovascular Disease
DX: R07.9 Chest pain, unspecified (principal); I50.30 Unspecified diastolic (congestive) heart failure
CPT/HCPCS: 99214

== ENCOUNTER → 2024-01-12 23:59 | Outpatient (BNV) | payer BC, SELFPAY | PROVIDERS: PCP Internal Medicine; Visit Provider Internal Medicine Cardiovascular Disease | DX: I20.89 Other forms of angina pectoris (principal) | CPT/HCPCS: 93460; 99152 ==

== ENCOUNTER 2024-01-21 15:21 | Outpatient (AMB) | payer BC, SELFPAY ==
[2024-01-21 15:23] VITALS: BP 132/70; PULSE 63; BMI 40.0
--- NOTE | 2024-01-21 15:23 | MHC.OFFVIS ---
Vital Signs 01/21/24 15:23 Height 5 ft Weight 205 lb 0.478 oz BMI 40.0 BP 132/70 Blood Pressure Location Lt brachial Position Sitting Pulse 63 Pulse Source Pulse Oximeter Intake Visit Reasons: Follow up post cardiac cath Data Support Analyst Required: No Allergies Penicillins [PENICILLINS] Allergy (Intermediate, Verified 01/21/24 15:25) RASH Medication List - Last Reconciled 01/21/24 by Holly Torres WAD PRINTING MACHINE OPERATOR-C amlodipine 5 mg PO DAILY aspirin (Ecotrin Low Strength) 81 mg PO DAILY bumetanide 0.5 mg PO DAILY cholecalciferol (vitamin D3) 50 mcg (2 x 25 mcg (1,000 unit)) PO DAILY isosorbide mononitrate ER 30 mg PO DAILY metoprolol succinate ER 50 mg PO DAILY pantoprazole 40 mg PO DAILY HPI HPI Follow up post cardiac cath: Details: Pat is a 58-year-old female with past medical history of morbid obesity, hypertension, hyperlipidemia, diastolic dysfunction, heart failure with preserved EF, sleep apnea, not using CPAP who reported chest tightness and shortness of breath with exertion on last visit. She was started on isosorbide and underwent a right and left heart catheterization and now presents for follow-up. She did have no significant coronary artery disease and elevated resting PA pressures. Today she reports that she has been feeling better since her procedure. She has been taking her isosorbide as directed. She does get a headache that is relieved with 1 Tylenol. She tells me the breathing is much improved and she is able to walk distances without having to stop. She still feels the discomfort in her chest but it causes her last concern now that she knows her heart is okay. No symptoms at rest. No palpitations, lightheadedness, presyncope, syncope, falls. No PND, orthopnea or edema. Got a rash from the tape that was used for her right antecubital IV site at the time of cardiac catheterization. Right radial catheterization site photographer still but improving. Taking meds as directed. [facility] Medical History Meningioma Obesity (BMI 30-39.9) Grade II diastolic dysfunction Liver fibrosis Left atrial dilation Steatosis, liver GERD (gastroesophageal reflux disease) DJD (degenerative joint disease) COVID-19 vaccine series completed Obesity Cerebral arterial aneurysm Middle cerebral artery aneurysm Preoperative cardiovascular examination Adjustment disorder, unspecified Pre-op evaluation Sleep apnea with use of continuous positive airway pressure (CPAP) Morbid obesity with BMI of 40.0-44.9, adult Obstructive sleep apnea Pure hypercholesterolemia Benign essential hypertension (HFpEF) heart failure with preserved ejection fraction Surgical History S/P laparoscopic sleeve gastrectomy (~08/27/21) History of surgery for cerebral aneurysm (~10/30/20) Hx of left knee surgery History of cardiac catheterization (~11/2019) Family History Father CVD (cardiovascular disease) Colon cancer Mother Gastric cancer Brother CVD (cardiovascular disease) Social History Housing: House Are you a primary care director to a significant other at home: No Do you presently have visiting nurse or other home services: No Alcohol intake: never Patient Tobacco Use Status: Never used Tobacco e-Cigarette/Vaping Use: Never Used Second Hand Smoke Exposure: No service: No Current occupational status: employed 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 Cognitive needs: No Hearing needs: No Vision needs: No Review of Systems Const All systems reviewed & are unremarkable except as noted in HPI and below ENT Denies dizziness Card Reports chest pain, Denies chest pain at rest, Denies chest pain with activity, Denies rapid heart rate, Denies pedal edema, Denies edema, Denies leg edema, Denies lightheadedness, Denies palpitations, Reports dyspnea (improved), Denies dyspnea on exertion and Denies orthopnea Resp Denies cough, Reports dyspnea (improved) and Denies dyspnea on exertion GI Denies hematochezia and Denies change in stool character Musc Denies abnormal gait, Denies limited range of motion, Denies muscle cramps, Denies muscle weakness, Denies numbness, Denies radiating pain into limb, Denies stiffness and Denies tingling Skin/Breast Details: rash at site of IV right anticubital Neuro Denies abnormal gait, Denies dizziness, Denies numbness and Denies tingling Endo Denies palpitations Physical Exam Vital Signs: Last Vital Signs Pulse 63 01/21/24 15:23 BP 132/70 01/21/24 15:23 BMI result Body Mass Index 40.0 Const General: cooperative, healthy appearing, comfortable and no acute distress Orientation/consciousness: patient oriented x3 Neck Neck: Yes normal visual inspection Resp Effort & Inspection: normal respiratory effort Auscultation: clear to auscultation bilaterally, no rales, no rhonchi and no wheezes Cardio Jugular venous distension: no JVD Rate: regular rate Rhythm: regular rhythm Heart sounds: S1 normal heart sound present, S2 normal heart sound present, no murmurs and no rubs Skin Other: contact dermatitis right antecubital - appears to be from tegaderm/ tape from IV site in that location. No drainage or infection noted. Neuro General: patient oriented x3 Extrem Other: right fadial cath site with easily palpable radial pulse, right hand assessment normal. General: Yes normal to inspection Psych Appearance: grossly normal Mental Status: mental status grossly normal Speech and movement: Normal speech and movement present Assessment & Plan Assessment & Plan (1) Exertional chest pain: Code(s): R07.9 - Chest pain, unspecified Category: Medical Plan: On last visit reported exertional chest tightness and shortness of breath with physical activity like walking from her car into work. She would need to stop and rest. Isosorbide was added. Last echocardiogram was done 06/24/2022 showing EF 65-70%, grade 2 diastolic dysfunction, left atrium severely dilated, [id number] mitral regurgitation. A repeat echocardiogram was ordered however not completed as of yet. She underwent a cardiac catheterization on 01/12/2024 showing no significant CAD, PA pressures elevated, wedge 17 mmHg, PA 41/20/28 mmHg. Recommendation was for the addition of hydrochlorothiazide however patient had been recently started on bumetanide. Today she reports that she is feeling much better overall. She does not have to stop when walking to catch her breath. She still has the discomfort in the chest but it is causing her less concern. She feels she is still getting use to her medications and does not want any medication changes done today. She has an in-lab sleep study scheduled for 02/04. Will obtain echocardiogram to reassess EF, diastolic function and mitral regurgitation. Plan to call her when results are available. Blood pressure initially 132/70 at the start of this visit and 118/62 after sitting for approximately 15 minutes. Will continue with med management for good blood pressure control including amlodipine, isosorbide, metoprolol and bumetanide. Continue aspirin. Cardiology office visit 3 months, sooner if needed. (2) Shortness of breath: Code(s): R06.02 - Shortness of breath Category: Medical Plan: Improved. (3) S/P cardiac cath: Comment: 01/12/2024, no significant coronary artery disease, lad with mild irregularities, right coronary dominant, wedge 17, PA mmHg Code(s): Z98.890 - Other specified postprocedural states Category: Surgical (4) Grade II diastolic dysfunction: Code(s): I51.89 - Other ill-defined heart diseases Category: Medical (5) (HFpEF) heart failure with preserved ejection fraction: Comment: sees [facility] Code(s): I50.30 - Unspecified diastolic (congestive) heart failure Category: Medical Qualifiers: Heart failure chronicity: unspecified Qualified Code(s): I50.30 - Unspecified diastolic (congestive) heart failure Plan: Last echo shows grade 2 diastolic dysfunction. She is on low-dose bumetanide. No clinical signs of heart failure on examination. No med changes made at this time (6) Sleep apnea with use of continuous positive airway pressure (CPAP): Code(s): G47.30 - Sleep apnea, unspecified Category: Medical Plan: She does not wear her CPAP mask. She is having an in-lab sleep study done for re-evaluation and mask setting adjustments. The importance of wearing a CPAP once this has been done reviewed with her. (7) Benign essential hypertension: Code(s): I10 - Essential (primary) hypertension Category: Medical Plan: Well controlled at this time (8) Skin rash: Code(s): R21 - Rash and other nonspecific skin eruption Category: Medical Plan: Patient has a area of contact dermatitis in the site where the Tegaderm and tape was for her right antecubital IV site during cardiac catheterization. This area does have some redness and tiny papules. She reports that it is very itchy. Instructed to keep the area clean and dry. Can use soap and water. Can take Benadryl if she has excess itching. Can apply a thin later of cortisone cream. Do not scratch the area. Watch for signs of infection. Call PCP if area looks like it is not improving. Plan Time spent on chart review, documentation, interview and assessment Coding Level of Care Code Est Pt Level 4 (75391) Diagnoses Exertional chest pain R07.9 Shortness of breath R06.02 S/P cardiac cath Z98.890 Grade II diastolic dysfunction I51.89 Heart failure with preserved ejection fraction, unspecified HF chronicity I50.30 Heart failure chronicity: unspecified Sleep apnea with use of continuous positive airway pressure (CPAP) G47.30 Benign essential hypertension I10 Skin rash R21 Time Spent (min) 36
== END 2024-01-21 15:57 | disposition home or self-care (01) ==
PROVIDERS: PCP Internal Medicine; Visit Provider Nurse Practitioner Family
DX: R07.9 Chest pain, unspecified (principal); R06.02 Shortness of breath; Z98.890 Other specified postprocedural states; I51.89 Other ill-defined heart diseases; I50.30 Unspecified diastolic (congestive) heart failure; G47.30 Sleep apnea, unspecified; I10 Essential (primary) hypertension; R21 Rash and other nonspecific skin eruption
CPT/HCPCS: 99214

== ENCOUNTER → 2024-01-21 15:21 | Outpatient (BNVA) | payer BC, SELFPAY | PROVIDERS: PCP Internal Medicine; Visit Provider Nurse Practitioner Family ==

== ENCOUNTER 2024-06-15 15:48 | Outpatient (AMB) | payer BC, SELFPAY ==
[2024-06-15 16:17] VITALS: BP 118/74; PULSE 66; O2SAT 97; BMI 40.4
--- NOTE | 2024-06-15 16:17 | MHC.PC.OV ---
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 Required: No Accompanied by: Self / Same As Patient Allergies Penicillins [PENICILLINS] Allergy (Intermediate, Verified 06/15/24 17:01) RASH Medication List - Last Reconciled 06/15/24 by Mert Meléndez MD amlodipine 5 mg PO DAILY aspirin (Ecotrin Low Strength) 81 mg PO DAILY bumetanide 0.5 mg PO DAILY cholecalciferol (vitamin D3) 50 mcg (2 x 25 mcg (1,000 unit)) PO DAILY isosorbide mononitrate ER 30 mg PO DAILY metoprolol succinate ER 50 mg PO DAILY pantoprazole 40 mg PO DAILY Tobacco use date assessed: 06/15/24 Dental Screening Dental Screen Date: 06/15/24 Did you have a dental visit in the last 12 months?: No Did you have a dental problem in the last 6 months where you did not have access to dental care?: No Was dental information given to patient?: No HPI [facility] 06/01 difficulty breathing HPI Details Patient comes in today for her follow up visit - she was last seen here over 15 months ago in September 2022 She was sent to the ER last week further evaluation after she presented to a local urgent care center for 3 weeks of cough and congestion and was found to have an enlarged heart on chest x-rays Workups done in the ER revealed (+) RSV infection and there was mild left atrial enlargement on chest x-rays but x-rays were otherwise negative Further workups were normal including labs, EKG and serial troponins Patient was eventually discharged back home with prescriptions for azithromycin and oral prednisone 40 mg daily x2 days Patient states that she currently is still experiencing chest congestion and recurrent cough States that she feels a lot of phlegm in her chest but she is not able to cough them up Relates also (+) easy fatigability and some RONQUILLO but denies any exertional chest pains She denies any fever or sore throat; denies any headaches or dizziness No nausea/vomiting, no abdominal pain No change in bowel habits noted Patient adds that she underwent sleeve gastrectomy here back in 2021, which resulted in an initial significant weight loss (down to 170 pounds) but her weight has since rebounded States that she was advised by cardiology a few months ago to discuss with her PCP about starting her on some of the newer injectable medications to help her lose weight [facility] Medical History (Updated 06/16/24 @ 04:58 by Mert Meléndez MD) Meningioma Obesity (BMI 30-39.9) Grade II diastolic dysfunction Liver fibrosis Left atrial dilation Steatosis, liver GERD (gastroesophageal reflux disease) DJD (degenerative joint disease) COVID-19 vaccine series completed Obesity Cerebral arterial aneurysm Middle cerebral artery aneurysm Preoperative cardiovascular examination Adjustment disorder, unspecified Pre-op evaluation Sleep apnea with use of continuous positive airway pressure (CPAP) Morbid obesity with BMI of 40.0-44.9, adult Obstructive sleep apnea Pure hypercholesterolemia Benign essential hypertension (HFpEF) heart failure with preserved ejection fraction Surgical History S/P laparoscopic sleeve gastrectomy (~08/27/21) History of surgery for cerebral aneurysm (~10/30/20) Hx of left knee surgery History of cardiac catheterization (~11/2019) Family History Father CVD (cardiovascular disease) Colon cancer Mother Gastric cancer Brother CVD (cardiovascular disease) Social History Housing: House Are you a primary nursing care partner to a significant other at home: No Do you presently have visiting nurse or other home services: No Alcohol intake: never Patient Tobacco Use Status: Never used Tobacco e-Cigarette/Vaping Use: Never Used Second Hand Smoke Exposure: No service: No Current occupational status: employed 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 1. Little interest or pleasure in doing things: not at all 2. Feeling down, depressed, or hopeless: not at all 3. Trouble falling or staying asleep, or sleeping too much: not at all 4. Feeling tired or having little energy: not at all 5. Poor appetite or overeating: not at all 6. Feeling bad about yourself - or that you are a failure or have let yourself or your family down: not at all 7. Trouble concentrating on things, such as reading the newspaper or watching television: not at all 8. Moving or speaking so slowly that other people could have noticed. Or the opposite - being so fidgety or restless that you have been moving around a lot more than usual: not at all 9. Thoughts that you would be better off or of hurting yourself in some way: not at all Total score: 0 Depression Screening Interpretation: Negative Depression Screening Done: Yes 25446 - PHQ-9 Billing: Yes Source: Developed by Drs. Tony Durant, Pat Connor, Ilia Patel and colleagues, with an educational marco a from [employer]. Thrive Questionnaire Date Thrive assessed: 06/15/24 I am a: Patient What is your living situation today?: I have a steady place to live Within the past 12 months, did the food you bought not last and you didn't have the money to get more?: Never true Within the past 12 months, did you worry whether your food would run out before you got money to buy more?: Never true Do you have trouble paying for medicines?: No Do you have trouble getting transportation to medical appointments?: No Do you have trouble paying your heating and electricity bill?: No Do you have trouble taking care of your child, family member or friend?: No Do you have trouble with day-to-day activities such as bathing, preparing meals, shopping, managing finances, etc.?: No Are you currently unemployed and looking for a job?: No Are you interested in more education?: No Please select the resources that you would like help with: None Currently or been in a relationship where the following occur: No concerns reported THRIVE Score: 0 AUDIT C Alcohol Use Questionnaire (AUDIT-C) 1. How often do you have a drink containing alcohol?: Never 3. How often do you have six or more drinks on one occasion?: Never Total Score: 0 Score Reviewed/Action Taken: Yes WAQAR-7 AMB Questionnaire WAQAR-7 Date WAQAR - 7 assessed: 06/15/24 Feeling nervous, anxious, or on edge: 0 = Not at all Not being able to stop or control worryin = Not at all Worrying too much about different things: 0 = Not at all Trouble relaxin = Not at all Being so restless that it is hard to sit still: 0 = Not at all Becoming easily annoyed or irritable: 0 = Not at all Feeling afraid as if something awful might happen: 0 = Not at all Total WAQAR-7 score (0-4 normal; 5-9 mild; 10-14 moderate; 15-21 severe): 0 Source: Developed by Drs. Tony Durant, Pat Connor, Ilia Patel and colleagues, with an educational marco a from [employer]. Review of Systems Const Denies chills, Reports fatigue, Denies fever(s) and Denies headache(s) ENT Denies dysphagia, Denies dizziness, Denies otalgia, Denies headache(s), Denies neck pain, Denies odynophagia and Denies sore throat Card Denies chest pain, Denies irregular heart rhythm, Denies palpitations and Reports dyspnea on exertion Resp Reports chest congestion, Reports cough, Reports dyspnea on exertion and Denies wheezing GI Denies abdominal pain, Denies constipation, Denies dysphagia, Denies heartburn, Denies diarrhea, Denies nausea, Denies odynophagia and Denies vomiting Denies hematuria, Denies urinary frequency, Denies dysuria and Denies urinary incontinence Musc Denies back pain, Denies arthralgias and Denies neck pain Skin/Breast Denies rash Neuro Denies dizziness, Denies headache(s) and Denies paresthesias Psych Denies anxiety and Denies depression Endo Reports fatigue and Denies palpitations Molina/Lymph Denies easy bruising Aller/Immun Denies wheezing Physical exam (Primary Care) Vital Signs: Last Vital Signs Pulse 66 06/15/24 16:17 BP 118/74 06/15/24 16:17 Pulse Ox 97 06/15/24 16:17 Oxygen Delivery Method Room Air 06/15/24 16:17 BMI result Body Mass Index 40.4 Tobacco/Smoking Status: Tobacco use Status Tobacco use date assessed 06/15/24 06/15/24 16:19 Patient Tobacco Use Status Never used Tobacco 06/15/24 16:19 e-Cigarette/Vaping Use Never Used 06/15/24 16:19 PHQ-9: PHQ-9 Score PHQ-9: Total score 0 06/15/24 23:41 Depression Screening Interpretation: Negative Thrive Assessment: Date of Thrive Assessment Date Thrive assessed 06/15/24 06/15/24 16:19 Currently or been in a relationship where the following occur: No concerns reported Const General: no acute distress and alert HENMT Ears: TM's normal bilaterally and EAC's normal Throat: Yes posterior oropharynx normal and Yes tonsils normal (no TP congestion) Neck Neck: Yes supple and No lymphadenopathy Thyroid: Thyroid normal Resp Auscultation: no crackles, no rales, rhonchi (occasional) throughout, wheezes (faint, occasionally) expiratory wheezes and upper bilaterally and diminished lung sounds bilateral Cardio Rate: regular rate Rhythm: regular rhythm Heart sounds: Murmur heart sound present systolic holo, blowing and at the apex GI Palpation (GI): Soft to palpation and nontender Auscultation: normal bowel sounds General: Yes no CVA tenderness Back/Spine/Pelvis Back: no CVA tenderness Thoracic/Lumbar Spine: No lumbar spinal tenderness Skin Rashes: no rashes Extrem General: Yes no clubbing, cyanosis or edema Coding Level of Care Code Est Pt Level 4 (58307) Diagnoses RSV bronchitis J20.5 Heart failure with preserved ejection fraction, unspecified HF chronicity I50.30 Heart failure chronicity: unspecified Meningioma D32.9 Middle cerebral artery aneurysm I67.1 Benign essential hypertension I10 Pure hypercholesterolemia E78.00 Obstructive sleep apnea G47.33 Obesity (BMI 30-39.9) E66.9 Additional Codes PHQ-9 - 67156 - PHQ-9 Billing: Yes ([id number]) Assessment & Plan Assessment & Plan (1) RSV bronchitis: Code(s): J20.5 - Acute bronchitis due to respiratory syncytial virus Category: Medical Plan: Patient currently is still experiencing increased cough and congestion as well as some RONQUILLO States that she is having a hard time coughing up any phlegm even though her chest feels congested and tight - she does have some diminished lung sounds on auscultation with occasional faint expiratory wheezing noted Will send her for some chest x-rays for further evaluation Will start her for now on Albuterol HFA 1 to 2 inhalations every 6 hours as needed as well as Mucinex ER 600 mg BID PRN (2) (HFpEF) heart failure with preserved ejection fraction: Comment: sees [facility] Code(s): I50.30 - Unspecified diastolic (congestive) heart failure Category: Medical Qualifiers: Heart failure chronicity: unspecified Qualified Code(s): I50.30 - Unspecified diastolic (congestive) heart failure Plan: Cardiac MRI done at [facility] on 02/24/2020 showed mild LVH with no evidence of cardiomyopathy.? LVEF was normal at 72%.? There is also mitral valve regurgitation and tricuspid valve regurgitation; right ventricular size is normal with RVEF at 67%; left atrium is moderately dilated and right atrium borderline in size Patient currently appears compensated Her most recent echocardiogram done in June 2022 revealed normal left ventricular systolic function,?with the visually estimated ejection fraction between 65-70%. Findings are suggestive of a grade II (moderate) diastolic dysfunction. The left atrium is severely dilated and there is mild to moderate mitral valve regurgitation Due to her recurrent RONQUILLO, she eventually underwent coronary angiography on 01/12/2024, which revealed no significant coronary artery disease She was recommended to continue on low dose Aspirin at 81 mg QD and aggressive risk factor modification Continue Bumetanide 0.5 mg QD Follow up with cardiology as scheduled (3) Meningioma: Comment: of the right cavernous sinus and right anterior clinoid process - was seen incidentally along with left MCA aneurysm on MRI done for headaches S/P COVID vaccine in 2020 Code(s): D32.9 - Benign neoplasm of meninges, unspecified Category: Medical Plan: She was seen by radiation oncology at the [facility] for consultation a couple of years ago in 2022 and was recommended radiation treatment Patient decided to undergo radiation Tx closer to home so arrangements were made for her to see radiation oncology at [facility] and she started fractionated radiation Tx at [facility] on 09/01/2022, went for Tx 5 times a week for 6 weeks and completed her treatments on 10/06/2022 States that she tolerated her treatments overall with no significant issues Follow up with neurosurgery as scheduled (4) Middle cerebral artery aneurysm: Comment: S/P left pterional craniotomy with clipping of large MCA aneurysm on 10/30/[address] Ernie Aquino at the [facility] in [place], [place] Code(s): I67.1 - Cerebral aneurysm, nonruptured Category: Medical Plan: Patient's aneurysm repair on 11/17/2020 went well and she is currently back to normal activities, including working out regularly, participating in [employer] classes and lifting weights Follow-up with neurosurgery as scheduled (5) Benign essential hypertension: Code(s): I10 - Essential (primary) hypertension Category: Medical Plan: Reinforced low sodium diet - goal is systolic BP of 120 mm or less Continue Amlodipine 5 mg QD and Metoprolol ER 50 mg QD (6) Pure hypercholesterolemia: Code(s): E78.00 - Pure hypercholesterolemia, unspecified Category: Medical Plan: Reinforced low cholesterol diet She was on Atorvastatin 40 mg Q HS in the past but this was discontinued a couple of years ago Her cholesterol levels were elevated when they were last checked in April 2023, with her total cholesterol at 248 mg/dl and LDL cholesterol at 145 mg/dl Will have her recheck her labs and fasting lipids GENARO for follow up (7) Obstructive sleep apnea: Code(s): G47.33 - Obstructive sleep apnea (adult) (pediatric) Category: Medical Plan: She has not been using her CPAP when sleeping at night for a while now as she finds it uncomfortable wearing her CPAP mask when sleeping She had an in-lab sleep study scheduled back on 02/05/2024 for re-evaluation and mask setting adjustments but this was apparently cancelled and she has not been rescheduled yet so far (8) Obesity (BMI 30-39.9): Code(s): E66.9 - Obesity, unspecified Category: Medical Plan: Reinforced diet/exercise as tolerated/lose weight S/P laparoscopic sleeve gastrectomy in August 2021 and she was able to lose over 50 pounds initially but her weight has since rebounded States that she has been advised by Cardiology to discuss with the PCP about starting on weight loss medications Have advised patient to go and get her follow up labs done first for evaluation and we can discuss use of these meds once her current respiratory symptoms have improved and her labs come out okay Follow up with Weight Management as scheduled Plan Follow up in 3 months Orders: Orders XR chest 2V 06/15/24 J98.8 - Other specified respiratory disorders Comprehensive [place]. Panel Fast 06/15/24 E78.00 - Pure hypercholesterolemia, unspecified TSH reflex Free T4 06/15/24 E78.00 - Pure hypercholesterolemia, unspecified UA CC w/rflx Micro + Cult 06/15/24 R30.0 - Dysuria B Type Natriuretic Peptide 06/15/24 I50.9 - Heart failure, unspecified Vitamin D 25-OH Total 06/15/24 E55.9 - Vitamin D deficiency, unspecified Hemoglobin A1c 06/15/24 R73.9 - Hyperglycemia, unspecified Complete Blood Count Auto Diff 06/15/24 D64.9 - Anemia, unspecified Lipid Panel 06/15/24 E78.00 - Pure hypercholesterolemia, unspecified Vitamin B12 and Folate 06/15/24 E53.8 - Deficiency of other specified B group vitamins Medications: New guaifenesin ER (Mucinex) 600 mg PO Q12H PRN 30 tabs 0RF cough/chest congestion albuterol sulfate 90 mcg/actuation (Ventolin HFA) 2 puffs inhalation Q6H 30 days PRN 8.5 grams 1RF shortness of breath or wheezing
--- OUTSIDE RECORDS SUMMARY | 2024-06-15 19:18 | XMS_ITS | Continuity of Care Document ---
Author Organization [facility] ter Address [address] [place] [id number]- Care Team Providers Care Quill Skinner Name Role Phone Mert Meléndez MD Primary Care Physician Encounter 05/28/24 - 05/29/[address] [id number] Attending Physician: Not on Staff, Attending MD Referring Physician: Not on Staff, Referring MD Encounter Type: [facility] Allergies, Adverse Reactions, Alerts Substance Criticality Severity Reaction Reaction Severity Status penicillin Rash Active penicillins Active Immunizations Given and Recorded Vaccine Date Status Refusal Reason SARS-CoV-2 (COVID-19) Ad26 vaccine 07/29/20 Given Medications amLODIPine 5 mg oral tablet 5 mg, 1, tablet, By Mouth, Daily, # 90 tablet, Refills 1, Tot. Refills 1, Maintenance, 11/28/19 3:54:00 PM EDT, Route to Pharmacy Electronically, [facility] #[id number], 158, cm, 11/28/19 9:35:00EDT, Height, 95, kg, 11/23/19 21:26:00 EDT, Dry Weight Start Date: 11/28/19 Status: Ordered Quantity: 90.0 Unit: tablet Repeat number: 2 aspirin 81 mg oral delayed release tablet 81 mg, 1, tablet, By Mouth, Daily, # 30 tablet, Refills 11, Tot. Refills 11, Maintenance, 11/28/19 3:55:00 PM EDT, Route to Pharmacy Electronically, [facility] #[id number], 158, cm, 11/28/19 9:35:00 EDT, Height, 95, kg, 11/23/19 21:26:00 EDT, Dry Weight Start Date: 11/28/19 Status: Ordered Quantity: 30.0 Unit: tablet Repeat number: 12 bumetanide 0.5 mg oral tablet 0.5 mg, 1, tablet, By Mouth, Daily, Refills 0, Maintenance, 01/12/24 7:12:00 AM EDT, Partial fill upon patient request if the prescription is for a schedule II opioid drug. Start Date: 01/12/24 Status: Ordered Repeat number: 1 hydrochlorothiazide 25 mg oral tablet 25 mg, 1, tablet, By Mouth, Daily, # 60 tablet, Refills 3, Tot. Refills 3, Maintenance, 01/12/24 9:36:00 AM EDT, Route to Pharmacy Electronically, [facility] #[id number], Partial fill upon patient request if the prescription is for a schedule II opioid drug., 150, cm, 01/12/24 7:08:00 EDT, Height, 94.3, kg, 01/12/24 7:08:00 EDT, Dry Weight Start Date: 01/12/24 Status: Ordered Quantity: 60.0 Unit: tablet Repeat number: 4 isosorbide mononitrate 30 mg oral tablet, extended release 30 mg, 1, tablet, By Mouth, Daily in AM, # 30 tablet, Refills 0, Maintenance, 01/12/24 6:52:00 AM EDT, Partial fill upon patient request if the prescription is for a schedule II opioid drug. Start Date: 01/12/24 Status: Ordered Quantity: 30.0 Unit: tablet Repeat number: 1 omeprazole 20 mg oral delayed release tablet 1 tablet = 20 mg, By Mouth, Daily, # 30 tablet, 3 Refills, Maintenance, 10/23/22 8:12:00 AM EDT, EC Tablet, [facility] #[id number], Partial fill upon patient request if the prescription is for a schedule II opioid drug., 153.1, cm, 10/08/22 16:50:00 EDT, Height, 80.9, kg, 07/23/22 8:50:00 EDT, Dry Weight Start Date: 10/23/22 Status: Ordered Quantity: 30.0 Unit: tablet Repeat number: 4 Pantoprazole Daily, 0 Refills, Maintenance, 04/10/23 12:50:00 PM EST Start Date: 04/10/23 Status: Ordered Repeat number: 1 Toprol XL 50 mg oral tablet, extended release 50 mg, 1, tablet, By Mouth, Daily, # 30 tablet, Refills 5, Tot. Refills 5, Maintenance, 11/28/19 3:58:00 PM EDT, Route to Pharmacy Electronically, [facility] #[id number], 158, cm, 11/28/19 9:35:00 EDT, Height, 95, kg, 11/23/19 21:26:00 EDT, Dry Weight Start Date: 11/28/19 Status: Ordered Quantity: 30.0 Unit: tablet Repeat number: 6 Problem List Condition Confirmation Course Effective Dates Status Health St atus Informant Severe obesity Confirmed Active Social History Social History Type Response Smoking Status Former smoker, quit more than 30 days ago entered on: 04/10/23 Sex Sex Representation Female (finding) Patient Care team information Care Team Personnel Name: Mert Meléndez MD Position: Reference Physician Member Role: PCP Address: [address] [place] [address] Telecom: Name: Angela Tesfaye RN Position: S RN Member Role: Primary Care Nurse Name: Latasha Mcgovern RN Position: S RN Member Role: Primary Care Nurse Care Team Related Persons Name: HYUN ESCOBEDO Name: JENELLE MURPHY Insurance Providers Guarantor name: KURT MCKINNONSHANTA Health Plan Information #: 1 Payer: [employer] Member Number: NA Policy Number: NA Group Number: NA
--- OUTSIDE RECORDS SUMMARY | 2024-06-15 19:18 | XMS_ITS | Clinical Summary ---
Author Organization [facility] ity Address [address] [place] [address] Care Team Providers Care [employer] Salesperson Name Role Phone Yevgeniy Gutierrez DO Primary Care Provider [phone] Social History Tobacco Use Types Packs/Day Years Used Date Smoking Tobacco: Never Assessed Comments Unknown Sex and Gender Information Value Date Recorded Sex Assigned at Not on file Legal Sex Female 8:54 PM EST Gender Identity Not on file Sexual Orientation Not on file Plan of Treatment Health Maintenance Due Date Last Done Comments Breast Cancer Screening 1965 DTaP,Tdap,and Td Vaccines (1 - Tdap) 1985 Hepatitis B Vaccines (1 of 3 - 19+ 3-dose series) 1985 Cervical Cancer Screening: P ap Smear 09/14/1987 Pneumococcal Vaccine: 50+ Ye ars (1 of 1 - PCV) 2016 Zoster Vaccines (1 of 2) 2016 COVID-19 Vaccine (2023-2 5 season) 2023 Influenza Vaccine (#1) 2023 HIB Vaccines Aged Out No longer eligi ble based on patient's age to complete this topic HPV Vaccines Aged Out No longer eligi ble based on patient's age to complete this topic Hepatitis A Vaccines Aged Out No long er eligible based on patient's age to complete this topic IPV Vaccines Aged Out No longer eligi ble based on patient's age to complete this topic MMR Vaccines Aged Out No longer eligi ble based on patient's age to complete this topic Meningococcal ACWY Vaccine Aged Out N o longer eligible based on patient's age to complete this topic Meningococcal B Vacine Aged Out No lo nger eligible based on patient's age to complete this topic Pneumococcal Vaccine: Pediat rics (0 to 5 Years) and At-Risk Patients (6 to 64 Years) Aged Out No longer eligible b ased on patient's age to complete this topic RSV Immunization Patients Un zack 20 months Aged Out No longer eligible b ased on patient's age to complete this topic Varicella Vaccines Aged Out No longer eligible based on patient's age to complete this topic Care Teams Automobiles Salesperson Relationship Specialty Start Date End Date Yevgeniy Gutierrez DO [facility] [place] [id number] PCP - General Family Medicine 09/02/17
== END 2024-06-15 17:10 | disposition home or self-care (01) ==
PROVIDERS: PCP Internal Medicine; Visit Provider Internal Medicine
DX: J20.5 Acute bronchitis due to respiratory syncytial virus (principal); I50.30 Unspecified diastolic (congestive) heart failure; D32.9 Benign neoplasm of meninges, unspecified; Z68.41 Body mass index [BMI] 40.0-44.9, adult; E66.9 Obesity, unspecified; I67.1 Cerebral aneurysm, nonruptured; I10 Essential (primary) hypertension; E78.00 Pure hypercholesterolemia, unspecified; G47.33 Obstructive sleep apnea (adult) (pediatric)

== ENCOUNTER → 2024-06-15 15:48 | Outpatient (BNVA) | payer BC, SELFPAY | PROVIDERS: PCP Internal Medicine; Visit Provider Internal Medicine | DX: J20.5 Acute bronchitis due to respiratory syncytial virus (principal); I11.0 Hypertensive heart disease with heart failure; I50.30 Unspecified diastolic (congestive) heart failure; I67.1 Cerebral aneurysm, nonruptured; D32.9 Benign neoplasm of meninges, unspecified; E78.00 Pure hypercholesterolemia, unspecified; G47.33 Obstructive sleep apnea (adult) (pediatric); E66.9 Obesity, unspecified; Z68.41 Body mass index [BMI] 40.0-44.9, adult; Z79.82 Long term (current) use of aspirin; Z79.899 Other long term (current) drug therapy | CPT/HCPCS: 96127 ==

== ENCOUNTER 2024-06-25 08:57 | Outpatient (REF) | payer BC, SELFPAY ==
--- NOTE | ~2024-06-25 | XR_ITS ---
EXAMINATION: XR CHEST 2 VIEWS HISTORY: J98.8 - Other specified respiratory disorders COMPARISON: Comparison is made with the prior examination dated 09/10/2020. FINDINGS: PA and lateral views of the chest are submitted. The lungs are expanded and clear. There is no pleural effusion, pneumothorax, or pulmonary vascular congestion. The heart is enlarged. There is degenerative disc disease of the spine. XR/XR chest 2V IMPRESSION: Cardiac megaly. No acute cardiopulmonary abnormality. Electronically signed by: Tony Vasques MD 06/27/2024 03:40 PM EDT
[2024-06-25 09:53] LABS: MANUAL DIFF FLAG NO
[2024-06-25 10:32] LABS: Basophils Absolute Auto 0.1 X10*3/uL (0.0-0.2); Basophils Percent Auto 1.9 % (0-2); Eosinophils Absolute Auto 0.1 X10*3/uL (0.0-0.4); Eosinophils Percent Auto 2.2 % (0-4); Hematocrit 41.6 % (37.0-47.0); Hemoglobin 13.4 g/dl (12.0-16.0); Imm Gran Abs Auto 0.01 X10*3/uL (0.00-0.03); Imm Gran Pct Auto 0.2 % (0.0-0.4); Lymphocytes Absolute Auto 1.2 X10*3/uL (1.2-4.9); Lymphocytes Percent Auto 29.2 % (20-40); Mean Corpuscular HGB Conc 32.2 g/dl (31.0-35.0); Mean Corpuscular Hemoglobin 28.8 pg (27.0-33.0); Mean Corpuscular Volume 89.5 fL (80.0-98.0); Mean Platelet Volume 11.2 fL (9.4-12.3); Monocytes Absolute Auto 0.4 X10*3/uL (0.1-1.2); Monocytes Percent Auto 10.2 % (2-11); Neutrophils Absolute Auto 2.3 x10*3/uL (2.0-8.3); Neutrophils Percent Auto 56.3 % (45-73); Platelet Count 273 X10*3/uL (160-400); Red Blood Count 4.65 X10*6/uL (4.20-5.50); White Blood Count 4.1 X10*3/uL (4.8-10.8)
[2024-06-25 10:45] LABS: Estimated Average Glucose 114 mg/dL; Hemoglobin A1C 132.1456 umol/L; Hemoglobin A1c % 5.6 % (<6.0); Total Hemoglobin (HGBA1C) 3544.5729 umol/L
[2024-06-25 10:51] LABS: Appearance Urine Clear; Color Urine Yellow; Glucose Urine UA Negative (Negative); Leukocyte Esterase Urine Negative (Negative); Nitrite Urine Negative (Negative); Urine Blood Negative (Negative); Urine Ketones Negative (Negative); Urine Protein Negative (Neg-Trace)
[2024-06-25 11:03] LABS: B Type Natriuretic Peptide 103 pg/mL (<100)
[2024-06-25 11:18] LABS: Alanine Aminotransferase 14 U/L (0-31); Albumin Level 3.9 g/dL (3.5-5.0); Alkaline Phosphatase 84 U/L (39-117); Anion Gap 11 (12-20); Aspartate Amino Transferase 22 U/L (5-31); Bilirubin Total 0.6 mg/dL (0.0-1.0); Blood Urea Nitrogen 21 mg/dL (9-16); Calcium 9.4 mg/dL (8.4-10.2); Carbon Dioxide 27 mmol/L (22-29); Chloride 112 mmol/L (96-108); Cholesterol 223 mg/dL (<200); Estimated Glomerular Filt Rate > 60; Glucose Fasting 99 mg/dL (60-99); HDL Cholesterol 69 mg/dL (>40); LDL Cholesterol Calculated 144 mg/dL (<100); Potassium 4.9 mmol/L (3.3-5.1); Sodium 145 mmol/L (135-145); Total Protein 7.5 g/dL (6.5-8.0); Triglycerides 52 mg/dL (<150)
[2024-06-25 11:22] LABS: TSH reflex Free T4 0.69 uIU/mL (0.32-4.0); Vitamin D 25-OH Total 30.2 ng/mL (>30)
[2024-06-25 11:39] LABS: Folate 11.4 ng/mL (> or = 4.0); Vitamin B12 509 pg/mL (200-900)
== END 2024-06-25 08:58 | disposition home or self-care (01) ==
LOC: HO.XRAY 08:57
PROVIDERS: PCP Internal Medicine; Visit Provider Internal Medicine
DX: I50.9 Heart failure, unspecified (principal); R30.0 Dysuria; J98.8 Other specified respiratory disorders; R73.9 Hyperglycemia, unspecified; E53.8 Deficiency of other specified B group vitamins; E55.9 Vitamin D deficiency, unspecified; D64.9 Anemia, unspecified; E78.00 Pure hypercholesterolemia, unspecified
CPT/HCPCS: 36415; 71046; 80053; 80061; 81003; 82306; 82607; 82746; 83036; 83880; 84443; 85025

== ENCOUNTER → 2024-06-25 09:57 | Outpatient (BNV) | payer BC, SELFPAY | PROVIDERS: PCP Internal Medicine; Visit Provider Radiology Diagnostic Radiology | DX: I51.7 Cardiomegaly (principal) | CPT/HCPCS: 71046 ==

== ENCOUNTER 2024-07-05 13:15 | Outpatient (AMB) | payer BC, SELFPAY ==
--- NOTE | 2024-07-05 13:18 | A.OFFVIS_ITS ---
VS Expanded 07/05/24 13:30 BP 186/88 H Blood Pressure Location Rt brachial Blood Pressure Position Sitting Pulse 83 Pulse Source Pulse Oximeter Temp 97.3 F Temperature Source Temporal Artery Scan Pulse Oximetry 96 Oxygen Delivery Method Room Air Height 5 ft Weight 200 lb 12.8 oz BMI 39.2 Body Fat % 46.4 Body Fat Mass 93.0 Fat Free Mass 107.6 Visceral Fat Rating 14.0 Body Water % 38.0 Body Water Mass 76.2 Muscle Mass/Score 102.0 Basal Metabolic Rate/Score 1,515 Intake Visit Reasons: (OV) po lsg 08/27/21 Allergies Penicillins [PENICILLINS] Allergy (Intermediate, Verified 06/15/24 17:01) RASH Medication List - Last Reconciled 07/05/24 by ALLISON Khan albuterol sulfate 90 mcg/actuation (Ventolin HFA) 2 puffs inhalation Q6H PRN 30 days amlodipine 5 mg PO DAILY aspirin (Ecotrin Low Strength) 81 mg PO DAILY bumetanide 0.5 mg PO DAILY cholecalciferol (vitamin D3) 50 mcg (2 x 25 mcg (1,000 unit)) PO DAILY guaifenesin ER (Mucinex) 600 mg PO Q12H PRN isosorbide mononitrate ER 30 mg PO DAILY metoprolol succinate ER 50 mg PO DAILY pantoprazole 40 mg PO DAILY HPI Comments Details: This?is a?58?yo female who is s/p LSG 08/27/2021. Presents for 2 year 10 month post op visit. Weight gain of 4.2lbs since last OV 1 year ago. Frustrated by lack of weight loss. She is interested in GLP1 agonists. Present meal plan includes: breakfast- 2 eggs lunch- Celebrate shake 2 scoops in 8oz UAM dinner- 5 forks protein, 5 forks salad/veg after dinner- another shake -given at last visit trying to control portions, but sometimes forgets to eat the cost of shakes sometimes limits her tries to eat eggs and fruit for breakfast, sometimes doesn't have lunch, gets home late from work and reyna Exercise routine includes: three days a week reyna x 1 hour, 1 mile walk every morning has been trying to exercise [facility] Medical History (Updated 06/16/24 @ 04:58 by Mert Meléndez MD) Meningioma Obesity (BMI 30-39.9) Grade II diastolic dysfunction Liver fibrosis Left atrial dilation Steatosis, liver GERD (gastroesophageal reflux disease) DJD (degenerative joint disease) COVID-19 vaccine series completed Obesity Cerebral arterial aneurysm Middle cerebral artery aneurysm Preoperative cardiovascular examination Adjustment disorder, unspecified Pre-op evaluation Sleep apnea with use of continuous positive airway pressure (CPAP) Morbid obesity with BMI of 40.0-44.9, adult Obstructive sleep apnea Pure hypercholesterolemia Benign essential hypertension (HFpEF) heart failure with preserved ejection fraction Surgical History S/P laparoscopic sleeve gastrectomy (~08/27/21) History of surgery for cerebral aneurysm (~10/30/20) Hx of left knee surgery History of cardiac catheterization (~11/2019) Family History Father CVD (cardiovascular disease) Colon cancer Mother Gastric cancer Brother CVD (cardiovascular disease) Social History Housing: House Are you a primary pediatric acute care unit nurse to a significant other at home: No Do you presently have visiting nurse or other home services: No Alcohol intake: never Patient Tobacco Use Status: Never used Tobacco e-Cigarette/Vaping Use: Never Used Second Hand Smoke Exposure: No service: No Current occupational status: employed 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 Balderas Code(s): Z98.84 - Bariatric surgery status Category: Surgical Plan Pt is interested in starting GLP1. Reviewed contraindications, discussed dosing. Discussed need for adequate protein intake while on GLP1s as well as frequent communication with our office. Pt will check in with me weekly and is aware that subsequent Rx will be dependent on frequent communication. RTC 2-3 months. Medications: New 2 tirzepatide (weight loss) (Zepbound) for 4 weeks 2.5 mg (0.5 mL) subcut QWEEK 2 mL 0RF
[2024-07-05 13:30] VITALS: BP 186/88; PULSE 83; TEMP 36.3; O2SAT 96; BMI 39.2
== END 2024-07-05 13:57 | disposition home or self-care (01) ==
LOC: HO.HBS 13:16
PROVIDERS: PCP Internal Medicine; Visit Provider Physician Assistant Surgical
DX: E66.812 Obesity, class 2 (principal); Z68.39 Body mass index [BMI] 39.0-39.9, adult; Z90.3 Acquired absence of stomach [part of]; Z98.84 Bariatric surgery status
CPT/HCPCS: 99214

== ENCOUNTER 2024-09-19 13:34 | Outpatient (AMB) | payer BC, SELFPAY ==
--- NOTE | 2024-09-19 13:24 | MHC.OFFVISWM ---
VS Expanded 09/19/24 13:34 Height 5 ft Weight 202 lb BMI 39.4 Intake Visit Reasons: (TV) po lsg 08/27/21 Allergies Penicillins [PENICILLINS] Allergy (Intermediate, Verified 06/15/24 17:01) RASH Medication List - Last Reconciled 09/19/24 by ALLISON Khan albuterol sulfate 90 mcg/actuation (Ventolin HFA) 2 puffs inhalation Q6H PRN 30 days amlodipine 5 mg PO DAILY aspirin 81 mg PO DAILY bumetanide 0.5 mg PO DAILY cholecalciferol (vitamin D3) 50 mcg (2 x 25 mcg (1,000 unit)) PO DAILY guaifenesin ER (Mucinex) 600 mg PO Q12H PRN isosorbide mononitrate ER 30 mg PO DAILY metoprolol succinate ER 50 mg PO DAILY pantoprazole 40 mg PO DAILY HPI Comments Details: This?is a?59?yo F who is s/p LSG 08/27/2021. Presents for 3yr post op visit. Weight at last visit on 07/05/2024 was 200.8 pounds, weight today is 202 pounds, representing a 1.2 pound weight gain with a BMI today of 39.5.? No complaints of nausea, emesis, abdominal pain or reflux, or constipation. At last visit tried to prescribe Zepbound but not approved by insurance. She denies issues with hunger. She is sick this week Present meal plan includes: breakfast- 2 eggs lunch- Celebrate shake 2 scoops in 8oz UAM dinner- 5 forks protein, 5 forks salad/veg after dinner- another shake -given at last visit trying to control portions, but sometimes forgets to eat the cost of shakes sometimes limits her tries to eat eggs and fruit for breakfast, sometimes doesn't have lunch, gets home late from work and reyna Exercise routine includes: three days a week reyna x 1 hour, 1 mile walk every morning has been trying to exercise more with weights PFSH Medical History (Updated 06/16/24 @ 04:58 by Mert Meléndez MD) Meningioma Obesity (BMI 30-39.9) Grade II diastolic dysfunction Liver fibrosis Left atrial dilation Steatosis, liver GERD (gastroesophageal reflux disease) DJD (degenerative joint disease) COVID-19 vaccine series completed Obesity Cerebral arterial aneurysm Middle cerebral artery aneurysm Preoperative cardiovascular examination Adjustment disorder, unspecified Pre-op evaluation Sleep apnea with use of continuous positive airway pressure (CPAP) Morbid obesity with BMI of 40.0-44.9, adult Obstructive sleep apnea Pure hypercholesterolemia Benign essential hypertension (HFpEF) heart failure with preserved ejection fraction Surgical History S/P laparoscopic sleeve gastrectomy (~08/27/21) History of surgery for cerebral aneurysm (~10/30/20) Hx of left knee surgery History of cardiac catheterization (~11/2019) Family History Father CVD (cardiovascular disease) Colon cancer Mother Gastric cancer Brother CVD (cardiovascular disease) Social History Housing: House Are you a primary daycare manager to a significant other at home: No Do you presently have visiting nurse or other home services: No Alcohol intake: never Patient Tobacco Use Status: Never used Tobacco e-Cigarette/Vaping Use: Never Used Second Hand Smoke Exposure: No service: No Current occupational status: employed 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 Cognitive needs: No Hearing needs: No Vision needs: No Telehealth Telehealth Telehealth Platform: Telephone Location of provider rendering services: practice address Location of patient: address on file Patient Identification confirmed using: Name, : Yes Telehealth method: voice only Patient verbally consented to treatment: Yes Patient verbally consented to billing insurance company: Yes Patient informed of any privacy concerns related to visit: Yes Minutes spent on Phone/Video with Pt.: 16 Assessment & Plan Assessment & Plan (1) S/P laparoscopic sleeve gastrectomy: Onset Date: ~08/27/21 Comment: esophago-gastroscopy, laparoscopic sleeve gastrectomy and laparoscopic gastropexy - Dr. Balderas Code(s): Z98.84 - Bariatric surgery status Category: Surgical (2) Obesity (BMI 30-39.9): Code(s): E66.9 - Obesity, unspecified Category: Medical Plan Will confirm dejesus pay garcia for Zepbound, pt is interested. I do not feel comfortable prescribing phentermine due to history of heart issues and multiple previous high BP readings. She also does not struggle with hunger. She will review options on [employer] website and let me know what she would like to do.
[2024-09-19 13:34] VITALS: BMI 39.4
--- OUTSIDE RECORDS SUMMARY | 2024-09-19 14:43 | XMS_ITS | Clinical Summary ---
Author Organization [facility] ity Address [address] [place] [address] Care Team Providers Care Senior Sql Database Developer Name Role Phone Yevgeniy Gutierrez DO Primary Care Provider [phone] Social History Tobacco Use Types Packs/Day Years [...] Vaccine (2023-2 5 season) 2023 Influenza Vaccine (Season Ended) 2024 HIB Vaccines Aged Out No longer eligi [...] age to complete this topic Meningococcal B Vaccine Aged Out No l onger eligible based on patient's age to complete [...] age to complete this topic Care Teams Senior Sql Database Developer Relationship Specialty Start Date End Date Yevgeniy Gutierrez DO [address] [place] [id number] PCP - General Family Medicine 09/02/17
== END 2024-09-19 13:57 | disposition home or self-care (01) ==
LOC: HO.HBS 13:34
PROVIDERS: PCP Internal Medicine; Visit Provider Physician Assistant Surgical
DX: E66.9 Obesity, unspecified (principal); Z68.39 Body mass index [BMI] 39.0-39.9, adult; Z90.3 Acquired absence of stomach [part of]; Z98.84 Bariatric surgery status
CPT/HCPCS: 98967

== ENCOUNTER → 2024-09-19 13:34 | Outpatient (BNVA) | payer BC, SELFPAY | PROVIDERS: PCP Internal Medicine; Visit Provider Physician Assistant Surgical | DX: E66.9 Obesity, unspecified (principal); Z68.39 Body mass index [BMI] 39.0-39.9, adult; Z90.3 Acquired absence of stomach [part of]; Z98.84 Bariatric surgery status | CPT/HCPCS: 98967 ==

== ENCOUNTER → 2024-10-06 15:45 | Outpatient (BNVA) | payer BC, SELFPAY | PROVIDERS: PCP Internal Medicine; Visit Provider Physician Assistant Surgical ==

== ENCOUNTER 2024-12-20 15:46 | Outpatient (AMB) | payer BC, SELFPAY ==
--- NOTE | 2024-12-20 15:48 | A.OFFPC_ITS ---
Vital Signs 12/20/24 15:49 Height 5 ft Weight 187 lb 2 oz BMI 36.5 BP 120/70 Blood Pressure Location Lt brachial Position Sitting Pulse 75 Pulse Source Pulse Oximeter Temp 97.1 F Temp Source Temporal Artery Scan Pulse Oximetry (%) 98 Oxygen Delivery Method Room Air Intake Visit Reasons: 3 Months f/u Intake Note: Patient is here to follow up on MEMO, GERD, HTN. Veterans Service Representative Required: No Casualty Claim Adjuster: Not Required per policy Accompanied by: Self / Same As Patient Allergies Penicillins (PENICILLINS) Allergy (Intermediate, Verified 12/20/24 16:09) RASH Medication List - Last Reconciled 12/20/24 by Mert Meléndez MD albuterol sulfate 90 mcg/actuation (Ventolin HFA) 2 puffs inhalation Q6H PRN 30 days amlodipine 5 mg PO DAILY aspirin 81 mg PO DAILY bumetanide 0.5 mg PO DAILY cholecalciferol (vitamin D3) 50 mcg (2 x 25 mcg (1,000 unit)) PO DAILY isosorbide mononitrate ER 30 mg PO DAILY metoprolol succinate ER 50 mg PO DAILY pantoprazole 40 mg PO DAILY tirzepatide (weight loss) 7.5 mg (0.5 mL) subcut QWEEK Tobacco use date assessed: 12/20/24 Dental Screening Dental Screen Date: 06/15/24 HPI 3 Months f/u HPI Details Patient comes in today for her follow-up visit States that she feels okay She denies any headaches or dizziness Denies any chest pains, no increased shortness of breath No nausea/vomiting, no abdominal pain No change in bowel habits noted She had her follow-up labs done back in June 2024 and would like to know how she did back then [facility] Medical History Meningioma Obesity (BMI 30-39.9) Grade II diastolic dysfunction Liver fibrosis Left atrial dilation Steatosis, liver GERD (gastroesophageal reflux disease) DJD (degenerative joint disease) COVID-19 vaccine series completed Obesity Cerebral arterial aneurysm Middle cerebral artery aneurysm Preoperative cardiovascular examination Adjustment disorder, unspecified Pre-op evaluation Sleep apnea with use of continuous positive airway pressure (CPAP) Morbid obesity with BMI of 40.0-44.9, adult Obstructive sleep apnea Pure hypercholesterolemia Benign essential hypertension (HFpEF) heart failure with preserved ejection fraction Surgical History S/P laparoscopic sleeve gastrectomy (~08/27/21) History of surgery for cerebral aneurysm (~10/30/20) Hx of left knee surgery History of cardiac catheterization (~11/2019) Family History Father CVD (cardiovascular disease) Colon cancer Mother Gastric cancer Brother CVD (cardiovascular disease) Social History Housing: House Are you a primary home care coordinator to a significant other at home: No Do you presently have visiting nurse or other home services: No Alcohol intake: never Patient Tobacco Use Status: Never used Tobacco e-Cigarette/Vaping Use: Never Used Second Hand Smoke Exposure: No service: No Current occupational status: employed 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 1. Little interest or pleasure in doing things: not at all 2. Feeling down, depressed, or hopeless: not at all 3. Trouble falling or staying asleep, or sleeping too much: not at all 4. Feeling tired or having little energy: not at all 5. Poor appetite or overeating: not at all 6. Feeling bad about yourself - or that you are a failure or have let yourself or your family down: not at all 7. Trouble concentrating on things, such as reading the newspaper or watching television: not at all 8. Moving or speaking so slowly that other people could have noticed. Or the opposite - being so fidgety or restless that you have been moving around a lot more than usual: not at all 9. Thoughts that you would be better off or of hurting yourself in some way: not at all Total score: 0 Depression Screening Interpretation: Negative Depression Screening Done: Yes 40961 - PHQ-9 Billing: Yes Source: Developed by Drs. Tony Durant, Pat Connor, Ilia Patel and colleagues, with an educational marco a from [employer]. Thrive Questionnaire Date Thrive assessed: 12/20/24 I am a: Patient What is your living situation today?: I have a steady place to live Within the past 12 months, did the food you bought not last and you didn't have the money to get more?: I choose not to answer this question Within the past 12 months, did you worry whether your food would run out before you got money to buy more?: I choose not to answer this question Do you have trouble paying for medicines?: I choose not to answer this question Do you have trouble getting transportation to medical appointments?: No Do you have trouble paying your heating and electricity bill?: I choose not to answer this question Do you have trouble taking care of your child, family member or friend?: No Do you have trouble with day-to-day activities such as bathing, preparing meals, shopping, managing finances, etc.?: I choose not to answer this question Are you currently unemployed and looking for a job?: No Are you interested in more education?: No Please select the resources that you would like help with: None Currently or been in a relationship where the following occur: No concerns reported THRIVE Score: 0 AUDIT C Alcohol Use Questionnaire (AUDIT-C) 1. How often do you have a drink containing alcohol?: Never 2. How many drinks containing alcohol do you have on a typical day when you are drinking?: 1 or 2 3. How often do you have six or more drinks on one occasion?: Never Total Score: 0 Score Reviewed/Action Taken: Yes WAQAR-7 AMB Questionnaire WAQAR-7 Date WAQAR - 7 assessed: 06/15/24 Feeling nervous, anxious, or on edge: 0 = Not at all Not being able to stop or control worryin = Not at all Worrying too much about different things: 0 = Not at all Trouble relaxin = Not at all Being so restless that it is hard to sit still: 0 = Not at all Becoming easily annoyed or irritable: 0 = Not at all Feeling afraid as if something awful might happen: 0 = Not at all Total WAQAR-7 score (0-4 normal; 5-9 mild; 10-14 moderate; 15-21 severe): 0 Source: Developed by Drs. Tony Durant, Pat Connor, Ilia Patel and colleagues, with an educational marco a from [employer]. Review of Systems Const Denies chills, Denies fatigue, Denies fever(s) and Denies headache(s) ENT Denies dysphagia, Denies dizziness, Denies otalgia, Denies headache(s), Denies neck pain, Denies odynophagia and Denies sore throat Card Denies chest pain, Denies palpitations and Denies dyspnea Resp Denies chest congestion, Denies cough, Denies dyspnea and Denies wheezing GI Denies abdominal pain, Denies constipation, Denies dysphagia, Denies heartburn, Denies diarrhea, Denies nausea, Denies odynophagia and Denies vomiting Denies difficulty voiding, Denies nocturia, Denies dysuria and Denies urinary urgency Musc Denies back pain and Denies neck pain Skin/Breast Denies rash Neuro Denies dizziness and Denies headache(s) Psych Denies anxiety and Denies depression Endo Denies fatigue and Denies palpitations Molina/Lymph Denies easy bruising Aller/Immun Denies wheezing Physical exam (Primary Care) Vital Signs: Last Vital Signs Temp 97.1 F 12/20/24 15:49 Pulse 75 12/20/24 15:49 BP 120/70 12/20/24 15:49 Pulse Ox 98 12/20/24 15:49 Oxygen Delivery Method Room Air 12/20/24 15:49 BMI result Body Mass Index 36.5 Tobacco/Smoking Status: Tobacco use Status Tobacco use date assessed 12/20/24 12/20/24 15:54 Patient Tobacco Use Status Never used Tobacco 12/20/24 15:54 e-Cigarette/Vaping Use Never Used 12/20/24 15:54 PHQ-9: PHQ-9 Score PHQ-9: Total score 0 12/20/24 16:12 Depression Screening Interpretation: Negative Thrive Assessment: Date of Thrive Assessment Date Thrive assessed 12/20/24 12/20/24 15:54 Currently or been in a relationship where the following occur: No concerns reported Const General: no acute distress and alert HENMT Ears: TM's normal bilaterally and EAC's normal Throat: Yes posterior oropharynx normal and Yes tonsils normal (no TP congestion) Neck Neck: Yes supple and No lymphadenopathy Thyroid: Thyroid normal Resp Auscultation: clear to auscultation bilaterally, no crackles, no rales and no wheezes Cardio Rate: regular rate Rhythm: regular rhythm Heart sounds: Murmur heart sound present systolic holo, blowing and at the apex GI Palpation (GI): Soft to palpation and nontender Auscultation: normal bowel sounds General: Yes no CVA tenderness Back/Spine/Pelvis Back: no CVA tenderness Thoracic/Lumbar Spine: No lumbar spinal tenderness Skin Rashes: no rashes Extrem General: Yes no clubbing, cyanosis or edema Results Reviewed Results Reviewed: Laboratory Tests 06/07/22 06/25/24 06/25/24 08:01 09:48 09:52 WBC 4.6 L 4.1 L Hgb 13.9 13.4 Hct 42.6 41.6 Plt Count 226 273 Sodium 142 145 Potassium 4.8 4.9 Creatinine 0.81 0.86 Estimated GFR > 60 > 60 Random Glucose 93 Fasting Glucose 99 Hemoglobin A1c % 5.2 5.6 Calcium 9.2 9.4 Iron 109 TIBC 304 % Saturation 36 Ferritin 83 AST 16 22 ALT 11 14 B-Natriuretic Peptide 103 H Total Protein 7.5 Albumin 3.9 Triglycerides 55 52 Cholesterol 221 223 H LDL Cholesterol, Calc 137 144 H HDL Cholesterol 73 69 Vitamin B12 364 509 25-OH Vitamin D Total 25.4 30.2 TSH 0.86 0.69 PTH Intact 64 Calcium (PTH Intact) 9.4 Ur Specific [place] 1.020 Urine Protein Negative Urine Glucose (UA) Negative Urine Blood Negative Urine Nitrite Negative Ur Leukocyte Esterase Negative Coding Level of Care Code Est Pt Level 4 (20488) Diagnoses Heart failure with preserved ejection fraction, unspecified HF chronicity I50.3 0 Heart failure chronicity: unspecified Meningioma D32.9 Middle cerebral artery aneurysm I67.1 Benign essential hypertension I10 Pure hypercholesterolemia E78.00 Obstructive sleep apnea G47.33 Obesity (BMI 30-39.9) E66.9 Additional Codes PHQ-9 - 44064 - PHQ-9 Billing: Yes ([id number]) Assessment & Plan Assessment & Plan (1) (HFpEF) heart failure with preserved ejection fraction: Comment: sees [facility] Code(s): I50.30 - Unspecified diastolic (congestive) heart failure Category: Medical Qualifiers: Heart failure chronicity: unspecified Qualified Code(s): I50.30 - Unspecified diastolic (congestive) heart failure Plan: Cardiac MRI done at [facility] on 02/24/2020 showed mild LVH with no evidence of cardiomyopathy.? LVEF was normal at 72%.? There is also mitral valve regurgit ation and tricuspid valve regurgitation; right ventricular size is normal with RVEF at 67%; left atrium is moderately dilated and right atrium borderline in size Patient currently appears compensated Her most recent echocardiogram done in June 2022 revealed normal left ventricular systolic function,?with the visually estimated ejection fraction between 65-70%. Findings are suggestive of a grade II (moderate) diastolic dysfunction. The left atrium is severely dilated and there is mild to moderate mitral valve regurgitation Due to her recurrent RONQUILLO, she eventually underwent coronary angiography on 01/12/2024, which revealed no significant coronary artery disease She was recommended to continue on low dose Aspirin at 81 mg QD and aggressive risk factor modification Continue Bumetanide 0.5 mg QD Follow up with cardiology as scheduled (2) Meningioma: Comment: of the right cavernous sinus and right anterior clinoid process - was seen incidentally along with left MCA aneurysm on MRI done for headaches S/P COVID vaccine in 2020 Code(s): D32.9 - Benign neoplasm of meninges, unspecified Category: Medical Plan: She was seen by radiation oncology at the [facility] for consultation a couple of years ago in 2022 and was recommended radiation treatment Patient decided to undergo radiation Tx closer to home so arrangements were made for her to see radiation oncology at [facility] and she started fractionated radiation Tx at [facility] on 09/01/2022, went for Tx 5 times a week for 6 weeks and completed her treatments on 10/06/2022 States that she tolerated her treatments overall with no significant issues Follow up with neurosurgery as scheduled (3) Middle cerebral artery aneurysm: Comment: S/P left pterional craniotomy with clipping of large MCA aneurysm on 10/30/[address] Ernie Aquino at the [facility] in [place], [place] Code(s): I67.1 - Cerebral aneurysm, nonruptured Category: Medical Plan: Patient underwent aneurysm repair on 11/17/2020 and she has been doing well since She is currently participating in normal activities as before, including working out regularly, participating in [employer] classes and lifting weights Follow-up with neurosurgery as scheduled (4) Benign essential hypertension: Code(s): I10 - Essential (primary) hypertension Category: Medical Plan: Reinforced low sodium diet - goal is systolic BP of 120 mm or less Continue Amlodipine 5 mg QD and Metoprolol ER 50 mg QD (5) Pure hypercholesterolemia: Code(s): E78.00 - Pure hypercholesterolemia, unspecified Category: Medical Plan: Results of her labs done back in June 2024 reviewed and discussed with patient Reinforced low cholesterol diet She was on Atorvastatin 40 mg Q HS in the past but this was discontinued a couple of years ago Her cholesterol levels were still elevated back in June 2024, with her total cholesterol at 223 mg/dl and LDL cholesterol at 144 mg/dl Have advised patient that she should consider going back on statins to help lower her cholesterol levels Will recheck her labs and fasting lipids in 6 months for follow up (6) Obstructive sleep apnea: Code(s): G47.33 - Obstructive sleep apnea (adult) (pediatric) Category: Medical Plan: She has not been using her CPAP when sleeping at night for a while now as she finds it uncomfortable wearing her CPAP mask when sleeping She had an in-lab sleep study scheduled back on 02/05/2024 for re-evaluation and mask setting adjustments but this was apparently cancelled and she has not been rescheduled yet so far (7) Obesity (BMI 30-39.9): Code(s): E66.9 - Obesity, unspecified Category: Medical Plan: Reinforced diet/exercise as tolerated/lose weight S/P laparoscopic sleeve gastrectomy in August 2021 and she was able to lose over 50 pounds initially but her weight has since rebounded States that she has been advised by Cardiology to discuss with the PCP about starting on weight loss medications We tried to start her on a GLP-1 Rx but this was denied by her insurance She has since been started on Zepbound (patient pays dejesus for her Rx) and is now at 10 mg SQ once a week Follow up with Weight Management as scheduled Plan Follow up in 6 months Orders: Orders Lipid Panel 6 Months E78.00 - Pure hypercholesterolemia, unspecified TSH reflex Free T4 6 Months E78.00 - Pure hypercholesterolemia, unspecified Vitamin D 25-OH Total 6 Months E55.9 - Vitamin D deficiency, unspecified Complete Blood Count Auto Diff 6 Months D64.9 - Anemia, unspecified Comprehensive [place]. Panel Fast 6 Months E78.00 - Pure hypercholesterolemia, unspecified UA CC w/rflx Micro + Cult 6 Months R30.0 - Dysuria Vitamin B12 and Folate 6 Months E53.8 - Deficiency of other specified B group vitamins Medications: Discontinued tirzepatide (weight loss) Discontinued Reason: Doctor's Order 7.5 mg (0.5 mL) subcut QWEEK 2 mL 0RF
[2024-12-20 15:49] VITALS: BP 120/70; PULSE 75; TEMP 36.2; O2SAT 98; BMI 36.5
--- OUTSIDE RECORDS SUMMARY | 2024-12-20 16:39 | XMS_ITS | Clinical Summary ---
Author Organization [facility] Address [address] [place] [id number] Phone Care Team Providers Care Color Maker Formulator Name Role Phone Unavailable Primary Care Provider Unavailabl e Social History Tobacco Use Types Packs/Day Years Used Date Smoking Tobacco: Never Assessed Education Answer Date Recorded Are you interested in more education? Not on sarai e 08/16/2022 Are you concerned about learning? Not on file 08/16/2022 No 08/16/2022 No 08/16/2022 Digital Access Answer Date Recorded No 09/16/2022 No 09/16/2022 Reliable internet access at home? Not on file 09/16/2022 Device with a working camera? Not on file Comments Unknown Sex and Gender Information Value Date Recorded Sex Assigned at Not on file Legal Sex Female 9:22 AM EDT Gender Identity Not on file Sexual Orientation Not on file Plan of Treatment Not on file Medical Devices Not on file Additional Source Comments The information contained in this document represents components of the legal health record. It is not the complete legal health record.[facility]
--- OUTSIDE RECORDS SUMMARY | 2024-12-20 16:39 | XMS_ITS | Clinical Summary ---
Author Organization [facility] ity Address [address] [place] [address] Care Team Providers Care Investment Banking Associate Name Role Phone Yevgeniy Gutierrez DO Primary Care Provider [phone] Social History Tobacco Use Types Packs/Day Years [...] 2016 Zoster Vaccines (1 of 2) 2016 Depression Screening 04/20/2024 COVID-19 Vaccine ( - 2023-2 5 season) 2024 Influenza Vaccine (#1) 2024 HIB Vaccines Aged Out No longer [...] age to complete this topic Care Teams Investment Banking Associate Relationship Specialty Start Date End Date Yevgeniy Gutierrez DO [address] [place] [address] PCP - General Family Medicine 09/02/17
== END 2024-12-20 16:23 | disposition home or self-care (01) ==
LOC: HO.HMCH 15:47
PROVIDERS: PCP Internal Medicine; Visit Provider Internal Medicine
DX: I50.30 Unspecified diastolic (congestive) heart failure (principal); D32.9 Benign neoplasm of meninges, unspecified; E66.9 Obesity, unspecified; Z68.36 Body mass index [BMI] 36.0-36.9, adult; I67.1 Cerebral aneurysm, nonruptured; I10 Essential (primary) hypertension; E78.00 Pure hypercholesterolemia, unspecified; G47.33 Obstructive sleep apnea (adult) (pediatric)

== ENCOUNTER → 2024-12-20 15:46 | Outpatient (BNVA) | payer BC, SELFPAY | PROVIDERS: PCP Internal Medicine; Visit Provider Internal Medicine | DX: K21.9 Gastro-esophageal reflux disease without esophagitis (principal); I11.0 Hypertensive heart disease with heart failure; I50.30 Unspecified diastolic (congestive) heart failure; G47.33 Obstructive sleep apnea (adult) (pediatric); D32.9 Benign neoplasm of meninges, unspecified; I67.4 Hypertensive encephalopathy; E66.9 Obesity, unspecified; E78.00 Pure hypercholesterolemia, unspecified; R30.0 Dysuria; E53.8 Deficiency of other specified B group vitamins | CPT/HCPCS: 96127 ==